=== PATIENT | male | born 1945 | race Caucasian/White ===

== ENCOUNTER 2016-07-10 12:18 | Inpatient (IN) | payer MEDICARE ==
[2016-07-09 08:30] VITALS: BMI 34.1
--- NOTE | 2016-07-10 09:38 | P.GSHP ---
History of Present Illness H&P Date: 07/10/16 CHIEF COMPLAINT: Ventral hernia HISTORY OF PRESENT ILLNESS: Lenny Novak is a 70-year-old gentleman who reports new onset swelling of the left lower abdomen and now along the left groin. He did have a previous right inguinal hernia repair done over two years ago. He has no symptoms of reflux disease anymore. His blood sugar is under excellent control. He has maintained over a 20+ pound weight loss. Now he presents for further evaluation and management. PAST MEDICAL HISTORY: Please see list. PAST SURGICAL HISTORY: Please see list. MEDICATIONS: Please see list. ALLERGIES: Please see list. SOCIAL HISTORY: No illicit drug use FAMILY HISTORY: No reports of Crohn disease or ulcerative colitis. REVIEW OF ORGAN SYSTEMS: CONSTITUTIONAL: No reports of fevers or chills. No reports of weight loss despite prior attempts. GI: Denies any blood in stools or constipation. PHYSICAL EXAM: VITAL SIGNS: Stable Vital signs: Afebrile. P: 65, R: 16, BP: 132/86, Ht: 55, Wt: 200 lbs. Abdomen: No large defect noted along the left lower anterior abdominal wall. However, there is mild swelling along the left groin noted. GENERAL: Well-developed pleasant male in no acute distress. HEENT: No scleral icterus. Extraocular movements grossly intact. Moist buccal mucosa. NECK: Supple without lymphadenopathy. CHEST: Unlabored respirations. Equal bilateral excursions. CARDIOVASCULAR: Regular rate and rhythm. Distal 2+ pulses. MUSCULOSKELETAL: No clubbing, cyanosis, or edema. ASSESSMENT: 1. History of new onset left lower quadrant abdominal pain. 2. Left groin pain. 3. History of previous bilateral inguinal hernias. 4. Diabetes type 2. PLAN: 1. I have recommended a CT of the abdomen and pelvis without oral or IV contrast. This will also help with kidney stone protocol as he also has a history of genitourinary problems. 2. Alternatives including diagnostic laparoscopy with lysis of adhesions were also described. 3. Overall, he reports swelling along the left groin for at least three weeks. Again, there is very high suspicious for a recurrent hernia for which mesh repair may be needed. 4. DVT prophylaxis. 5. Antibiotics prophylaxis. 6. Recommend proceeding with a diagnostic laparoscopy with left ventral/ inguinal hernia repair with mesh. 7. Benefits and risks of surgical intervention was discussed including possibility of open technique. Past Medical History Past Medical History: Cancer, Diabetes Mellitus, GERD/Reflux, Hypertension, Prostate Disorder, Sleep Apnea/CPAP/BIPAP, Thyroid Disorder Additional Past Medical History / Comment(s): HX Right KIDNEY CA. Enlarged Prostate. SLEEP APNEA RESOLVED. Hiatal Hernia CORRECTED. HX COLON POLYPS. History of Any Multi-Drug Resistant Organisms: None Reported Past Surgical History: Bowel Resection, Cholecystectomy, Hernia Repair, Orthopedic Surgery, Tonsillectomy Additional Past Surgical History / Comment(s): RT NEPHRECTOMY. RT KNEE ARTHROSCOPY. HIATAL, RT ING Hernia Repair. Past Anesthesia/Blood Transfusion Reactions: No Reported Reaction Past Psychological History: No Psychological Hx Reported Smoking Status: Never smoker Past Alcohol Use History: None Reported Past Drug Use History: None Reported - Past Family History Brother(s) Family Medical History: Cancer Additional Family Medical History / Comment(s): prostate Mother Family Medical History: Cancer Medications and Allergies Home Medications Medication Instructions Recorded Confirmed Type Aspirin 81 mg PO HS 09/20/13 07/09/16 History Insulin Glargine [Lantus] 15 unit SQ BID 09/20/13 07/09/16 History Levothyroxine Sodium [Synthroid] 100 mcg PO DAILY 09/20/13 07/09/16 History glipiZIDE [Glucotrol] 5 mg PO BID 09/20/13 07/09/16 History Carvedilol [Coreg] 12.5 mg PO BID 05/10/15 07/09/16 History Doxazosin Mesylate [Cardura] 8 mg PO DAILY@1800 05/10/15 07/09/16 History Allergies Allergy/AdvReac Type Severity Reaction Status Date / Time Penicillins Allergy Rash/Hives Verified 07/09/16 08:03
[~2016-07-10 12:18] MED LIST: ACETAMINOPHEN IV (For NPO) 1,000 MG in EMPTY BAG 1 BAG IVPB ONE; DEXAMETHASONE SOD PHOSPHATE 10 MG/ML 1 ML VIAL IV ONE; HEPARIN SODIUM,PORCINE 5,000 UNIT/ML 1 ML VIAL SQ ONE; HYDROmorphone 1 MG/ML 1 ML SYRINGE IVP PRN; LIDOCAINE 1% 20 ML VIAL (10MG/ML) FOR IV START INTRADERMA PRN; ONDANSETRON 4 MG/2 ML VIAL IVP ONE; ceFAZolin 2 GM in SODIUM CHLORIDE 0.9% 100 ML IVPB ONE
[2016-07-10] MEDS ORDERED: LACTATED RINGERS 1,000 ML IV ONE ×3 (13:41→17:15)
[2016-07-10 13:50] LABS: Glucose,Whole Blood 112 mg/dL (75-99)
[2016-07-10] MEDS ORDERED: MIDAZOLAM 2 MG/2 ML VIAL ONE (14:52)
[2016-07-10] MEDS ORDERED: ROCURONIUM BROMIDE 10 MG/ML 10 ML VIAL IV ONE (14:52)
[2016-07-10] MEDS ORDERED: ePHEDrine 50 MG/ML 1 ML AMP ONE (14:52)
[2016-07-10] MEDS ORDERED: PROPOFOL 10 MG/ML 20 ML VIAL IV ONE (14:52)
[2016-07-10] MEDS ORDERED: GLYCOPYRROLATE 0.2 MG/ML 2 ML VIAL ONE (14:52)
[2016-07-10] MEDS ORDERED: SUCCINYLCHOLINE CHLORIDE 100 MG/5 ML SYR IV ONE (14:52)
[2016-07-10] MEDS ORDERED: NEOSTIGMINE 1 MG/ML 10 ML VIAL ONE (14:52)
[2016-07-10] MEDS ORDERED: fentaNYL (PF) 50 MCG/ML 2 ML AMP ONE (14:52)
[2016-07-10] MEDS ORDERED: LIDOCAINE 1% INJ 10MG/ML (20 ML MDV) ONE (14:52)
[2016-07-10] MEDS ORDERED: BUPIVACAIN-EPI 0.25%-1:200,000 30 ML VIAL SQ ONE (15:28)
--- NOTE | 2016-07-10 18:39 | P.PCN ---
Date of Procedure: 07/10/16 Preoperative Diagnosis: Left lower abdominal pain, left groin pain, history of multiple abdominal surgeries, peritoneal adhesions, history of right nephrectomy, diabetes type 2, morbid obesity, BMI 34.1; history of previous colon cancer, history of right renal cancer, history of obstructive uropathy with prostatic hyperplasia Postoperative Diagnosis: Same, urethral stricture, severe intra-abdominal peritoneal adhesions involving midline, right upper quadrant and left lower quadrant, left inguinal tumor Procedure(s) Performed: Laparoscopic lysis of adhesions over 2 hours involving greater omentum to anterior abdominal wall wall midline, right upper quadrant, sigmoid adhesions in the left lower quadrant; laparoscopic left groin exploration with resection of inguinal tumor/lipoma, laparoscopic left inguinal hernia with 11.4 cm mesh Anesthesia: JANICE, local Surgeon: Suze Herbert Estimated Blood Loss (ml): 60 Pathology: other (tumor left groin) Condition: stable Disposition: observation Operative Findings: Severe intra-abdominal peritoneal adhesions involving the midline, right upper quadrant, left lower quadrant; no recurrent right inguinal hernia with mesh identified; severe adhesions along the left lower quadrant involving the sigmoid mesentery to the left lower abdominal wall; left inguinal lipoma/tumor resected; urethral stricture requiring 14-Tamazight Leary catheter placed
[2016-07-10] MEDS ORDERED: NALOXONE 0.4 MG/ML 1 ML VIAL IV PRN (18:40)
[2016-07-10] MEDS ORDERED: METOCLOPRAMIDE 5 MG/ML 2 ML VIAL IVP PRN (18:40)
[2016-07-10] MEDS ORDERED: HYDROcodone/APAP 5-325MG 1 EACH TAB PO PRN (18:40)
[2016-07-10] MEDS ORDERED: LABETALOL SYRINGE 5 MG/ML IVP ONE ×2 (18:50→19:00)
[2016-07-10 19:14] LABS: Glucose,Whole Blood 191 mg/dL (75-99)
[2016-07-10] MEDS ORDERED: INSULIN LISPRO (humaLOG) 300 UNIT/3 ML VIAL SQ ONE (19:19)
--- NOTE | 2016-07-10 20:22 | OP ---
DATE OF SERVICE: 07/10/2016 SURGEON: ARANZA TRUJILLO MD PREOPERATIVE DIAGNOSES: 1. Left lower abdominal pain. 2. Left groin pain. 3. History of multiple abdominal surgeries. 4. History of peritoneal adhesions. 5. History of right nephrectomy secondary to renal cancer. 6. History of colon cancer. 7. Obstructive uropathy secondary to hyperplastic prostate. 8. Hypertensive heart disease. 9. Insulin-dependent diabetes, type 2. 10. Hypothyroidism. 11. Obesity. 12. Body mass index 34.1. POSTOPERATIVE DIAGNOSES: 1. Left lower abdominal pain. 2. Left groin pain. 3. History of multiple abdominal surgeries. 4. History of peritoneal adhesions. 5. History of right nephrectomy secondary to renal cancer. 6. History of colon cancer. 7. Obstructive uropathy secondary to hyperplastic prostate. 8. Hypertensive heart disease. 9. Insulin-dependent diabetes, type 2. 10. Hypothyroidism. 11. Obesity. 12. Body mass index 34.1. 13. Urethral stricture. 14. Severe intraabdominal adhesions involving the midline, right upper quadrant, including left lower quadrant, sigmoid colon to the left pelvis. 15. Left groin tumor consistent with lipoma. OPERATION: 1. Laparoscopic extensive lysis of adhesions over 2 hours. 2. Laparoscopic left groin exploration with excision of inguinal lipoma/tumor. 3. Laparoscopic left inguinal hernia repair with mesh; 11.[address] ANESTHESIA: General with 60 mL 0.25% Marcaine with epinephrine. ESTIMATED BLOOD LOSS: 5 mL SPECIMENS REMOVED: Left inguinal tumor/lipoma. COMPLICATIONS: None. INDICATIONS: Lenny Novak is a 70-year-old gentleman with a history of multiple prior malignancies. Separately he has a previous history of bilateral inguinal hernia repair; however, he presents with a several-month history of increasing pain along the left lower abdomen, including increasing left groin pain. He had completed diagnostic studies. With his history of multiple intraabdominal adhesions, surgical intervention with lysis of adhesions including repair of left inguinal hernia was also reviewed. Informed consent was obtained. Benefits and risks, including bleeding, infection, injury to the small bowel, placement of mesh, were reviewed. Informed consent was obtained. DESCRIPTION OF PROCEDURE: Patient was brought to the operating room, laid in supine position. He had taken his Coreg early in the morning. He was placed on the operating room table in supine position. After general induction, the abdomen was prepped and draped in standard sterile fashion. Ioban draping was also placed. Initial placement of a 18 [place]an Leary catheter was limited due to a urethral stricture; hence a 14 [place]an catheter was placed per Nursing. Clear yellow urine was obtained. Prior to incision, a timeout protocol was confirmed with surgical team regarding patient's name, including procedure to be performed as well as chemical and DVT prophylaxis. Initial incision was placed along the left upper quadrant after anesthetizing the skin. A zero-degree 5 mm laparoscopic trocar entry was performed. The abdomen was insufflated to 15 mmHg pressure, which he tolerated well. Diagnostic laparoscopy demonstrated severe midline adhesions of the greater omentum to the anterior abdominal wall, including of the transverse mesocolon. The left lower quadrant and the sigmoid colon was adherent to the left hemipelvis. Next, two 5 mm trocars were placed along the left lateral abdominal wall under direct visualization. Extensive lysis of adhesions using a combination of blunt and sharp dissection with a cordless Harmonic scalpel and endoscopic scissors was performed without any enterotomies. Extensive and careful lysis of adhesions occurred well over 2 hours with complete mobilization of the adhesions of the omentum to the anterior abdominal wall along the midline as well as the small bowel and transverse colon that was adherent along the epigastrium and right upper quadrant. Once the abdominal wall was cleared, additional two 5 mm trocars were placed along the right lateral abdominal wall again under direct visualization. Attention was directed to the left lower quadrant, where the sigmoid colon was found adherent to the left lower quadrant consistent with the area of his concerns of pain. Please note that the area of pain had been marked with an indelible marker by the patient. He was placed in reverse Trendelenburg position with the left side up. A separate 5 mm trocar was placed just above the umbilicus. Adhesiolysis was again performed for at least half an hour. The mesocolon of the sigmoid colon was mobilized. Careful evaluation of the left groin was performed, whereby the left groin was explored with his history of chronic groin pain. Along the inguinal canal a lipoma of the left groin was resected. No injury to the vas deferens occurred. Hemostasis was checked. The rest of the groin was explored for femoral hernias, including obturator as well as direct hernias. The groin defect was oversewn using a pursestring suture of 2-0 Surgidac and a Lapra-Ty, including on an Endo stitch. As he has a history of previous hernias, including risk of recurrence, a Ventralight ST mesh 11.4 cm was divided and entered into the abdominal cavity. Sorbafix tackers were placed along the periphery of the mesh with the exception of the inferior portion to avoid any injury to the neurovascular bundles. Final endoscopic imaging was obtained regarding complete adhesiolysis, including placement of the mesh. At the end of the procedure, needle, sponge and instrument count was verified correct by the event crew technician. The incisions were reapproximated using 4-0 Monocryl in interrupted subcuticular fashion. For the right lower quadrant port, please note a 10 mm port was exchanged, which allowed for intracorporeal suturing. A total of 60 mL 0.25% Marcaine with epinephrine was infiltrated to all wounds for postoperative analgesia. The skin was cleansed. Dermabond was applied. Urine output was marginal; however, with his history of urethral stricture as well as previous obstructive neuropathy, a Leary catheter was left. Patient will be admitted at least for overnight observation with consultation to his urologist. Intraoperative findings, including images, were reviewed with the patient's family, who were pleased with the level of care. FINDINGS: 1. Severe intraabdominal adhesions along the midline, right upper quadrant and left lower quadrant. 2. Left inguinal lipoma with groin exploration, resected. 3. Repair of left inguinal hernia performed. [facility]
[2016-07-10] MEDS: LACTATED RINGERS 1,000 ML IV SCH (20:57)
[2016-07-10] MEDS ORDERED: ASPIRIN 81 MG CHEW PO SCH (21:00)
[2016-07-10] MEDS: SODIUM CHLORIDE 0.9% 1,000 ML IV SCH (21:21)
[2016-07-10] MEDS: glipiZIDE 5 MG TAB PO SCH (21:22)
[2016-07-10] MEDS: CARVEDILOL 12.5 MG TAB PO SCH (21:22)
[2016-07-10] MEDS: INSULIN GLARGINE 100 UNIT/ML 10 ML VIAL SQ SCH (21:23)
[2016-07-10] MEDS: INSULIN LISPRO (humaLOG) 300 UNIT/3 ML VIAL SQ SCH (21:25)
[2016-07-10 21:37] LABS: Glucose,Whole Blood 223 mg/dL (75-99)
[2016-07-11] MEDS: HEPARIN SODIUM,PORCINE 5,000 UNIT/ML 1 ML VIAL SQ SCH ×2 (01:32→09:22)
[2016-07-11 04:08] LABS: Glucose,Whole Blood 215 mg/dL (75-99)
[2016-07-11] MEDS: LACTATED RINGERS 1,000 ML IV SCH (05:55)
[2016-07-11] MEDS ORDERED: LEVOTHYROXINE 100 MCG TAB PO SCH (06:00)
[2016-07-11] MEDS ORDERED: TAMSULOSIN 0.4 MG CAP.ER.24H PO STA (07:14)
[2016-07-11 07:53] LABS: Calcium 8.4 mg/dL (8.4-10.2); Potassium 4.8 mmol/L (3.5-5.1)
[2016-07-11 08:17] VITALS: BP 144/81; PULSE 74; RESP 17; TEMP 98.2
[2016-07-11] MEDS ORDERED: PANTOPRAZOLE 40 MG/10 ML VIAL IV SCH (09:00)
[2016-07-11 09:15] LABS: Glucose,Whole Blood 286 mg/dL (75-99)
[2016-07-11] MEDS: glipiZIDE 5 MG TAB PO SCH (09:21)
[2016-07-11] MEDS: CARVEDILOL 12.5 MG TAB PO SCH (09:22)
[2016-07-11] MEDS: INSULIN GLARGINE 100 UNIT/ML 10 ML VIAL SQ SCH (09:26)
[2016-07-11] MEDS: INSULIN LISPRO (humaLOG) 300 UNIT/3 ML VIAL SQ SCH (09:27)
[2016-07-11] MEDS: SODIUM CHLORIDE 0.9% 1,000 ML IV SCH (09:31)
[2016-07-11] MEDS ORDERED: PANTOPRAZOLE 40 MG TABLET PO SCH (10:00)
--- NOTE | 2016-07-11 11:52 | P.GSCN ---
History of Present Illness Consult date: 07/11/16 History of present illness: The patient is a 70-year-old gentleman who was admitted the hospital for a left inguinal hernia repair by Dr. Herbert. An intraoperative catheter was elected to be placed and the nursing staff had a problem. He required a 14- Sinhala catheter to be placed and for this reason I was consult. The patient is known to me as I did a nephrectomy on him for kidney cancer many years ago on the left side. He has been discharged from my office as he has done well. Urologically he is voiding relatively well. He has occasional urgency. Is been no infection or bleeding. His stream is adequate. He has no incontinence. Review of Systems - Gastrointestinal Reports as per HPI - Genitourinary Reports as per HPI Past Medical History Past Medical History: Cancer, Diabetes Mellitus, GERD/Reflux, Hypertension, Prostate Disorder, Sleep Apnea/CPAP/BIPAP, Thyroid Disorder Additional Past Medical History / Comment(s): HX Right KIDNEY CA. Enlarged Prostate. SLEEP APNEA RESOLVED. Hiatal Hernia CORRECTED. HX COLON POLYPS. History of Any Multi-Drug Resistant Organisms: None Reported Past Surgical History: Bowel Resection, Cholecystectomy, Hernia Repair, Orthopedic Surgery, Tonsillectomy Additional Past Surgical History / Comment(s): RT NEPHRECTOMY. RT KNEE ARTHROSCOPY. HIATAL, RT ING Hernia Repair. Past Anesthesia/Blood Transfusion Reactions: No Reported Reaction Past Psychological History: No Psychological Hx Reported Smoking Status: Never smoker Past Alcohol Use History: None Reported Past Drug Use History: None Reported - Past Family History Brother(s) Family Medical History: Cancer Additional Family Medical History / Comment(s): prostate Mother Family Medical History: Cancer Medications and Allergies Home Medications Medication Instructions Recorded Confirmed Type Aspirin 81 mg PO HS 09/20/13 07/10/16 History Insulin Glargine [Lantus] 15 unit SQ BID 09/20/13 07/10/16 History Levothyroxine Sodium [Synthroid] 100 mcg PO DAILY 09/20/13 07/10/16 History glipiZIDE [Glucotrol] 5 mg PO BID 09/20/13 07/10/16 History Carvedilol [Coreg] 12.5 mg PO BID 05/10/15 07/10/16 History Doxazosin Mesylate [Cardura] 8 mg PO DAILY@1800 05/10/15 07/10/16 History Allergies Allergy/AdvReac Type Severity Reaction Status Date / Time Penicillins Allergy Rash/Hives Verified 07/09/16 08:03 Surgical - Exam Vital Signs Resp 20 07/10/16 04:00 - General well developed, well nourished, no distress - Eyes PERRL - ENT no hearing loss - Neck trachea midline - Respiratory normal expansion, normal respiratory effort - Cardiovascular Rhythm: regular - Abdomen Abdomen: soft, non tender - Genitourinary normal penis with no external lesions, testicles present - Integumentary no rash, no growths - Neurologic normal coordination, normal sensation, disoriented - Musculoskeletal normal posture - Psychiatric oriented to time, oriented to person, oriented to place Results - Labs 07/11/16 06:20 Abnormal Lab Results - Last 24 Hours (Table) 07/10/16 07/10/16 07/10/16 Range/Units 13:47 19:11 21:14 Chloride (98-107) mmol/L BUN (9-20) mg/dL Creatinine (0.66-1.25) mg/dL Glucose (74-99) mg/dL POC Glucose (mg/dL) 112 H 191 H 223 H (75-99) mg/dL 07/11/16 07/11/16 07/11/16 Range/Units 04:04 06:20 09:13 Chloride 108 H (98-107) mmol/L BUN 23 H (9-20) mg/dL Creatinine 1.45 H (0.66-1.25) mg/dL Glucose 214 H (74-99) mg/dL POC Glucose (mg/dL) 215 H 286 H (75-99) mg/dL Diabetes panel 07/11/16 Range/Units 06:20 Sodium 139 (137-145) mmol/L Potassium 4.8 (3.5-5.1) mmol/L Chloride 108 H (98-107) mmol/L Carbon Dioxide 23 (22-30) mmol/L BUN 23 H (9-20) mg/dL Creatinine 1.45 H (0.66-1.25) mg/dL Glucose 214 H (74-99) mg/dL Calcium 8.4 (8.4-10.2) mg/dL Calcium panel 07/11/16 Range/Units 06:20 Calcium 8.4 (8.4-10.2) mg/dL Pituitary panel 07/11/16 Range/Units 06:20 Sodium 139 (137-145) mmol/L Potassium 4.8 (3.5-5.1) mmol/L Chloride 108 H (98-107) mmol/L Carbon Dioxide 23 (22-30) mmol/L BUN 23 H (9-20) mg/dL Creatinine 1.45 H (0.66-1.25) mg/dL Glucose 214 H (74-99) mg/dL Calcium 8.4 (8.4-10.2) mg/dL Adrenal panel 07/11/16 Range/Units 06:20 Sodium 139 (137-145) mmol/L Potassium 4.8 (3.5-5.1) mmol/L Chloride 108 H (98-107) mmol/L Carbon Dioxide 23 (22-30) mmol/L BUN 23 H (9-20) mg/dL Creatinine 1.45 H (0.66-1.25) mg/dL Glucose 214 H (74-99) mg/dL Calcium 8.4 (8.4-10.2) mg/dL Assessment and Plan Plan: Impression: Difficult urethral catheterization indeterminate cause, possible BPH , possible urethral stricture. Status post inguinal hernia repair. Status post nephrectomy. Recommendations: Patient's catheters been removed. He does not describe any difficulty voiding. If he voids without difficulty nothing further urologic needs to be done other than a follow-up in my office in about 2-3 weeks. If he has difficulty urinating we'll address that as a arises. Been instructed to see me in 2-3 weeks.
[2016-07-11 13:39] LABS: Hemoglobin A1C 7.2 % (4.2-6.1)
--- NOTE | 2016-07-11 13:41 | P.DS ---
Providers Date of admission: 07/10/16 18:28 Expected date of discharge: 07/11/16 Attending physician: Suze Herbert Consults: 07/10/16 18:40 Consult Physician Routine Consulting Provider: Charlie Ch Consult Reason/Comments: Urethral stricture, known to you Do you want consulting provider notified?: Yes 07/10/16 19:44 Consult Physician Routine Consulting Provider: Wander Flood Consult Reason/Comments: Medical management Do you want consulting provider notified?: Yes Primary care physician: Wander Flood - Discharge Diagnosis(es) (1) Urethral stricture Current Visit: Yes Status: Acute (2) Obstructive uropathy Current Visit: Yes Status: Acute (3) Diabetes type 2, controlled Current Visit: Yes Status: Acute (4) Hypertensive heart disease Current Visit: Yes Status: Acute (5) Obesity (BMI 30.0-34.9) Current Visit: Yes Status: Acute (6) History of renal carcinoma Current Visit: Yes Status: Acute (7) History of colon cancer Current Visit: Yes Status: Acute (8) History of Waterman's esophagus Current Visit: Yes Status: Acute (9) Peritoneal adhesions Current Visit: Yes Status: Acute (10) Left lower quadrant pain Current Visit: Yes Status: Acute (11) Left groin pain Current Visit: Yes Status: Acute (12) Hypothyroidism Current Visit: Yes Status: Acute (13) Recurrent inguinal hernia of left side without obstruction or gangrene Current Visit: Yes Status: Acute Hospital Course: The patient is a 70-year-old gentleman with multiple medical comorbidities as well as multiple previous abdominal surgeries who presented with persistent left lower quadrant abdominal pain including the left groin pain. He has a personal history of previous bilateral inguinal hernia repairs with recurrent symptoms. He completed diagnostic studies at an outside institution demonstrating large prostate. He underwent a diagnostic laparoscopy with extensive lysis of adhesions over 2 hours. Additionally intraoperative findings including urethral stricture was identified. Postoperatively, with his new diagnosis of uretheral stricture as well as obstructive uropathy and multiple medical comorbidities with a single kidney, the patient was admitted. Consultation with urology was obtained. Prior to discharge he was tolerating diet. His pain was controlled. Management of urethral stricture including follow-up as outpatient with urology was advised. Procedures: Laparoscopic lysis of adhesions over 2 hours. Laparoscopic left groin exploration with excision of left groin lipoma. Laparoscopic repair of recurrent left inguinal hernia with mesh. Patient Condition at Discharge: Stable Plan - Discharge Summary New Discharge Prescriptions: Hydrocodone/Acetaminophen [[place] 5-325] 1 - 2 each PO Q6HR PRN #20 tab PRN Reason: Pain Discharge Medication List Aspirin 81 mg PO HS 09/20/13 [History] Insulin Glargine [Lantus] 15 unit SQ BID 09/20/13 [History] Levothyroxine Sodium [Synthroid] 100 mcg PO DAILY 09/20/13 [History] glipiZIDE [Glucotrol] 5 mg PO BID 09/20/13 [History] Carvedilol [Coreg] 12.5 mg PO BID 05/10/15 [History] Doxazosin Mesylate [Cardura] 8 mg PO DAILY@1800 05/10/15 [History] Hydrocodone/Acetaminophen [[place] 5-325] 1 - 2 each PO Q6HR PRN #20 tab 07/10/16 [Rx] Follow up Appointment(s)/Referral(s): Suze Herbert MD [STAFF PHYSICIAN] - 07/14/16 (Call to confirm time) Charlie Ch MD [STAFF PHYSICIAN] - 2 Weeks (follow up with Dr Ch in 2 to 3 weeks) Patient Instructions/Handouts: Laparoscopic Herniorrhaphy (DC), Lysis of Abdominal Adhesions (DC) Activity/Diet/Wound Care/Special Instructions: No lifting or 4 pounds in 4 weeks. Discharge Disposition: HOME SELF-CARE
[2016-07-11] MEDS ORDERED: TAMSULOSIN 0.4 MG CAP.ER.24H PO ONE (18:00)
[2016-07-12] MEDS ORDERED: TAMSULOSIN 0.4 MG CAP.ER.24H PO SCH (18:00)
== END 2016-07-11 14:48 | disposition home or self-care (01) | DRG 336 ==
LOC: OR 12:18 → 3SUR 18:28
PROVIDERS: ADMIT Surgery Plastic and Reconstructive Surgery; ATTEND Surgery Plastic and Reconstructive Surgery
PROC: 0YU64JZ Supplement Left Inguinal Region with Synthetic Substitute, Percutaneous Endoscopic Approach (ICD-10-PCS; 2016-07-10)
PROC: 0WBF4ZX Excision of Abdominal Wall, Percutaneous Endoscopic Approach, Diagnostic (ICD-10-PCS; 2016-07-10)
PROC: 0DNS4ZZ (ICD-10-PCS; principal; 2016-07-10 14:45)
DX: D17.5 Benign lipomatous neoplasm of intra-abdominal organs (principal); N13.8 Other obstructive and reflux uropathy; E11.9 Type 2 diabetes mellitus without complications; K40.91 Unilateral inguinal hernia, without obstruction or gangrene, recurrent; G47.30 Sleep apnea, unspecified; K21.9 Gastro-esophageal reflux disease without esophagitis; N40.1 Benign prostatic hyperplasia with lower urinary tract symptoms; N35.9 Urethral stricture, unspecified; K66.0 Peritoneal adhesions (postprocedural) (postinfection); I11.9 Hypertensive heart disease without heart failure; E03.9 Hypothyroidism, unspecified; E66.9 Obesity, unspecified; Z68.34 Body mass index [BMI] 34.0-34.9, adult; Z85.038 Personal history of other malignant neoplasm of large intestine; Z85.528 Personal history of other malignant neoplasm of kidney; Z86.010 Personal history of colon polyps; Z90.5 Acquired absence of kidney; Z90.49 Acquired absence of other specified parts of digestive tract; Z79.82 Long term (current) use of aspirin; Z79.4 Long term (current) use of insulin; Z79.84 Long term (current) use of oral hypoglycemic drugs; Z79.899 Other long term (current) drug therapy
CPT/HCPCS: 80048; 83036; 88305

== ENCOUNTER → 2017-04-20 | Outpatient (CLI) | payer MEDICARE ==
--- NOTE | 2017-04-20 12:17 | XR ---
Right knee HISTORY: Right knee pain 3 views of the right knee There is chondrocalcinosis. There is joint space loss is present tricompartmentally. Marginal spurrin g is also present tricompartmentally. There may be small loose bodies. Possible joint effusion. Bone mineralization and alignment maintained. 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
== END | disposition home or self-care (01) ==
LOC: RADXRMAIN 10:04
PROVIDERS: ATTEND Internal Medicine Geriatric Medicine
DX: M25.561 Pain in right knee (principal)

== ENCOUNTER → 2018-04-28 | Outpatient (CLI) | payer MEDICARE ==
[2018-04-28 14:17] LABS: HCT 44.8 % (39.0-53.0); HGB 14.6 gm/dL (13.0-17.5); MCH 30.7 pg (25.0-35.0); MCHC 32.7 g/dL (31.0-37.0); MCV 93.9 fL (80.0-100.0); Mean Platelet Volume 6.7; Platelet Count 116 k/uL (150-450); RBC 4.77 m/uL (4.30-5.90); RDW 13.7 % (11.5-15.5); WBC 4.8 k/uL (3.8-10.6)
[2018-04-28 14:20] LABS: Prothrombin Time 10.6 sec (9.0-12.0)
[2018-04-28 14:31] LABS: Albumin 3.8 g/dL (3.5-5.0); Appearance,Urine Clear (Clear); Bilirubin,Urine Negative (Negative); Blood,Urine Negative (Negative); Calcium 8.7 mg/dL (8.4-10.2); Color,Urine Yellow; Glucose,Urine (UA) 4+ (Negative); Ketones,Urine Negative (Negative); Leukocyte Esterase,Urine Negative (Negative); Nitrite,Urine Negative (Negative); PH, Urine 5.5 (5.0-8.0); Potassium 4.6 mmol/L (3.5-5.1); Protein,Urine Negative (Negative); Specific Gravity,Urine 1.017 (1.001-1.035); Total Bilirubin 0.9 mg/dL (0.2-1.3); Total Protein 5.9 g/dL (6.3-8.2); Urobilinogen,Urine <2.0 mg/dL (<2.0)
== END | disposition home or self-care (01) ==
LOC: LABPAT 13:14
PROVIDERS: ATTEND Orthopaedic Surgery
DX: Z01.818 Encounter for other preprocedural examination (principal); Z01.812 Encounter for preprocedural laboratory examination; Z79.01 Long term (current) use of anticoagulants
CPT/HCPCS: 36415; 80053; 81003; 85027; 85610; 85730; 87070; 93005

== ENCOUNTER 2018-05-17 09:55 | Inpatient (IN) | payer MEDICARE ==
[~2018-05-17 09:55] MED LIST changes: -ACETAMINOPHEN IV (For NPO) 1,000 MG in EMPTY BAG 1 BAG IVPB ONE; +ACETAMINOPHEN TAB 500 MG TAB PO ONE; -HEPARIN SODIUM,PORCINE 5,000 UNIT/ML 1 ML VIAL SQ ONE; +HYDROmorphone 0.5 MG/0.5 ML SYRINGE IVP PRN; -HYDROmorphone 1 MG/ML 1 ML SYRINGE IVP PRN; -LIDOCAINE 1% 20 ML VIAL (10MG/ML) FOR IV START INTRADERMA PRN; +MELOXICAM 7.5 MG TAB PO ONE; +MIDAZOLAM (PF) 2 MG/2 ML VIAL IV PRN; +ROPIVACAINE 246.25 MG, EPINEPHrine 0.5 MG, KETOROLAC 30 MG, cloNIDine HCL/PF 80 MCG, WA... MISCELLANE ONE; +TRANEXAMIC ACID 1,000 MG in SODIUM CHLORIDE 0.9% 100 ML IVPB ONE; -ceFAZolin 2 GM in SODIUM CHLORIDE 0.9% 100 ML IVPB ONE; +ceFAZolin IN SWFI 2 GM/20 ML SYRINGE IVP ONE
[2018-05-17 10:38] VITALS: RESP 16
[2018-05-17] MEDS ORDERED: LIDOCAINE 1% 20 ML VIAL (10MG/ML) FOR IV START INTRADERMA ONE (11:00)
[2018-05-17] MEDS ORDERED: LACTATED RINGERS 1,000 ML IV ONE ×2 (11:06→13:10)
[2018-05-17 11:14] LABS: Glucose,Whole Blood 92 mg/dL (75-99)
[2018-05-17] MEDS ORDERED: fentaNYL (PF) 50 MCG/ML 2 ML AMP IVP ONE (11:20)
[2018-05-17] MEDS ORDERED: ONDANSETRON 4 MG/2 ML VIAL IVP PRN (11:47)
[2018-05-17] MEDS ORDERED: DIAZEPAM 5 MG TAB PO PRN (11:47)
[2018-05-17] MEDS ORDERED: hydrOXYzine PAMOATE 25 MG CAP PO PRN (11:47)
[2018-05-17] MEDS ORDERED: HYDROmorphone 0.5 MG/0.5 ML SYRINGE IVP PRN ×3 (11:47)
[2018-05-17] MEDS ORDERED: HYDROcodone/APAP 5-325MG 1 EACH TAB PO PRN ×2 (11:47)
[2018-05-17] MEDS ORDERED: BISACODYL 10 MG SUPP RECTAL PRN (11:47)
[2018-05-17] MEDS ORDERED: NALOXONE 0.4 MG/ML 1 ML VIAL IV PRN (11:47)
[2018-05-17] MEDS ORDERED: NA PHOS,M-B/NA PHOS,DI-BA 133 ML ENEMA RECTAL PRN (11:47)
[2018-05-17] MEDS ORDERED: MAGNESIUM HYDROXIDE 2,400 MG/10 ML CUP PO PRN (11:47)
[2018-05-17] MEDS ORDERED: MIDAZOLAM 2 MG/2 ML VIAL ONE (12:03)
[2018-05-17] MEDS ORDERED: fentaNYL (PF) 50 MCG/ML 2 ML AMP ONE (12:03)
[2018-05-17] MEDS ORDERED: TRANEXAMIC ACID 1,000 MG/10 ML VIAL ONE (12:03)
[2018-05-17] MEDS ORDERED: diphenhydrAMINE 50 MG/ML 1 ML VIAL ONE (12:03)
[2018-05-17] MEDS ORDERED: SODIUM CHLORIDE 0.9% 100 ML BAG ONE (12:03)
[2018-05-17] MEDS ORDERED: PHENYLEPHRINE-0.9% NACL SYG 1 MG/10 ML SYRINGE ONE (12:03)
[2018-05-17] MEDS ORDERED: ROPIVACAINE 1,100 MG, SODIUM CHLORIDE 0.9% 500 ML 330 ML MISCELLANE PRN ×2 (12:19)
--- NOTE | 2018-05-17 12:21 | P.ONQ ---
Anesthesiology Proc Note - PNB - Peripheral Nerve Block Performed Right Adductor Canal Infusion Time Out Performed: Yes Indication: Acute Post-Operative Pain Specifically requested for management of pain by DrAzalia: Olu Ackerman Sedation Type: Sedate with meaningful contact maintained Preparation: Sterile Prep Position: Supine Catheter Depth at Skin (cm): 7 Catheter: Indwelling Needle Types: Other (see comment) (Pajunk) Needle Size: 100mm (4") Needle Gauge: 18 Technique: Ultrasound Injectate: 0.5% Ropivacaine (see comment for volume) (20cc) Blood Aspirated: No Pain Paresthesia on Injection Noted: No Resistance on Injection: Normal Events: Uneventful and Well Tolerated
[2018-05-17] MEDS ORDERED: CLINDAMYCIN 1,800 MG in SODIUM CHLORIDE 0.9% IRRIGATIO 3,000 ML IRRIGATION ONE (12:38)
--- NOTE | 2018-05-17 13:32 | P.OP ---
Date of Procedure: 05/17/18 Preoperative Diagnosis: Severe osteoarthritis right knee Postoperative Diagnosis: Severe osteoarthritis right knee Procedure(s) Performed: Right total knee arthroplasty Implants: Ch[employer]hew Journey II CR Oxinium cruciate retaining femoral component size 5, right [employer] Journey right nonporous tibial baseplate size 5 [employer] Journey II, XLPE CR articular insert, size 9 mm, Size 5-6 right [employer] Journey BCS resurfacing oval patellar component, 29 mm All components were cemented using Palacos R bone cement.. The articulation is Oxinium on polyethylene. Anesthesia: spinal Surgeon: Olu Ackerman Product Manager Medical Device #1: Tameka Nguyen Estimated Blood Loss (ml): 25 Pathology: other (Bone and cartilage) Condition: stable Disposition: PACU Indications for Procedure: After failure of conservative treatment we discussed the surgical and nonsurgical treatment options at length. Patient wishes to proceed with a total knee arthroplasty. Complications specific to this procedure were discussed at length, including but not limited to infection, bleeding, stiffness, and nerve injury. Patient is aware of all these complications and informed consent was obtained Operative Findings: The operative findings are consistent with severe osteoarthritis of the right knee Description of Procedure: Patient was seen in the preoperative area consent was reviewed and operative site was marked with a skin marker. An adductor canal pain catheter was placed by anesthesia in the preoperative area. Patient was then brought to the operating room and given preoperative antibiotics intravenously. A spinal anesthetic was administered by the anesthesia department. A tourniquet was placed on the upper thigh and the lower extremity was prepped and draped in usual sterile fashion. A gram of transexamic acid was given. A universal timeout was then performed which confirmed the patient's name, surgical site, ALLERGIES, and consent. The lower extremity was then exsanguinated and tourniquet was inflated to 250 mmHg. A standard and anterior midline approach to the knee was performed. The skin and subcutaneous tissue was dissected down to the patellar tendon. A medial parapatellar arthrotomy was then performed. The knee was then extended, the patellar was everted, and the knee was again flexed. Anterior horns of both menisci were excised, and a release was performed to the posterior medial aspect of the knee. On gross visual inspection, there was complete loss of articular cartilage in the medial and patellofemoral joint spaces. There was also significant cartilage damage in the lateral compartment. There were multiple periarticular osteophytes which were then removed with a Ronguer. The femoral canal was then opened with the appropriate drill, and the intramedullary femoral cutting guide was then placed and set for 5 of valgus. The distal femoral cutting block was then pinned in place, and the distal femur was then cut. The cutting block was then removed and the cut was checked for flatness. Next, the sizing guide was then placed and set for 3 external rotation based off of the epicondylar axis and Whitesides line. After the femur was sized, the appropriate 4-in-1 cutting block was then pinned in place. The anterior condyles were cut without notching. The posterior and chamfer cuts were performed while protecting the collateral ligaments. The cutting block was then removed, and the femoral canal was plugged with autologous bone. Attention was then directed to the tibia. The remaining ACL was removed with a Ronguer, and the tibia was then gently subluxed forward with a large bent knee retractor. Any remaining menisci was excised. The posterior lateral corner was cauterized in order to cauterize the lateral geniculate artery. The extra medullary tibial cutting guide was then placed, set for the appropriate rotation, slope, and depth of resection. The proximal tibia cutting guide was then pinned in place. Proximal tibia was then cut and sized. Next trials were then placed with the appropriate-sized insert. The knee was able to fully extend and flex to 130 and was stable throughout all range of motion. The knee was then extended, patella everted. Patella was then measured, and then using an osteotomy guide, the patella was cut at the appropriate level. The patella was then measured and drilled and the patella trial was then placed. The knee was then taken through range of motion with the patella trial and the patella tracked normally. The knee was then extended patella trial was then removed and the patella was everted. Knee was then flexed and lug holes were drilled through the femoral trial and the femoral trial was then removed. The tibial was then exposed, and the tibial broach guide was then pinned in place after it was set for the appropriate rotation to allow for the most coverage without overhang. The tibia was then reamed and broached. The cut surfaces of bone were then irrigated with pulsatile lavage. The posterior structures were injected with the ropivacaine solution. The knee was also irrigated with Irrisept solution. The components were then opened, the cement was mixed, and the components were then cemented in place. The cement was allowed to harden with the knee in full extension. While the cement was hardening, the remaining soft tissues were then injected with a ropivacaine solution, which consisted of 246.25 mg of ropivacaine, 0.5 mg of epinephrine, 30 mg of Toradol, 80 g of clonidine, and 48.45 mL of sterile water, for a total of 100 mL of fluid injected. After the cemented hardened. The tourniquet was released, and hemostasis was obtained. A second gram of transexamic acid was given. The knee was again irrigated. The knee was again taken through range of motion and found to be stable throughout all range of motion of 0-130, and the patella tracked normally. The fascia was then closed with #2 strata fix suture. The subcutaneous tissue was closed with 3-0 Vicryl and 3-0 strata fix. Dermabond glue was used for the skin and placed with the knee in flexion. The patient was placed in a sterile silver dressing. Patient was then transferred to recovery room in stable condition. The assistant teacher primary MARIAMA Fierro was required due the complexity surgery and the need for a skilled surgical assistant certified. She assisted in positioning, draping, retraction, and closure of the wound.
--- NOTE | 2018-05-17 14:09 | XR ---
Right knee HISTORY: Postop 2 views the right knee, correlation to prior exam 04/20/2017 Patient is status post right knee arthroplasty. There is anatomic alignment. Lucency in the soft tiss ues is compatible with postop state. IMPRESSION: Orthopedic follow-up.
[2018-05-17] MEDS: LACTATED RINGERS 1,000 ML IV SCH (14:26)
[2018-05-17 14:32] LABS: Glucose,Whole Blood 70 mg/dL (75-99)
[2018-05-17 15:22] VITALS: BMI 35.2
--- NOTE | 2018-05-17 16:12 | P.CONS ---
History of Present Illness - Reason for Consult Consult date: 05/17/18 Medical management Requesting physician: Olu Ackerman - Chief Complaint Right total knee arthroplasty - History of Present Illness This is a 72-year-old gentleman patient of Dr. Flood, underlying history of hypothyroidism and diabetes mellitus type 2, CK D stage III, idiopathic peripheral neuropathy, hemorrhoids, primary thrombocytopenia, paroxysmal esophagus CAD renal cancer with right nephrectomy, scheduled right total knee arthroplasty on 05/17/2018, patient is seen postoperatively, without any new complaints, except for mild postop nausea, patient does not have any chest pain or shortness of breath, no lightheadedness, no melena no hematochezia. Patient denies any history of previous DVT in the past currently in orthopedic floor, was noted to have new onset afib in surgery preholding area, with singificant ectopy when seen in floor with stable vital signs, ekg requested, cardiology consult for new onset afib Review of Systems Constitutional: Reports as per HPI, Denies anorexia, Denies chills, Denies chronic headaches, Denies chronic pain, Denies daytime sleepiness, Denies fatigue, Denies fever, Denies lethargy, Denies malaise, Denies night sweats, Denies poor appetite, Denies sweats, Denies weakness, Denies weight gain, Denies weight loss Ears, nose, mouth and throat: Reports as per HPI, Denies ant. neck pain, Denies bleeding gums, Denies dental pain, Denies dysphagia, Denies epistaxis, Denies headache, Denies hoarseness, Denies mouth pain, Denies nasal congestion, Denies nasal discharge, Denies neck fullness/pressure, Denies neck lump, Denies nose pain, Denies odynophagia, Denies post-nasal drip, Denies sinus pain, Denies sinus pressure, Denies swelling in mouth, Denies swelling in throat, Denies sore throat, Denies vertigo, Denies voice changes Cardiovascular: Reports as per HPI Respiratory: Reports as per HPI Gastrointestinal: Reports as per HPI, Denies abdominal pain, Denies belching, Denies bloating, Denies BRBPR, Denies change in bowel habits, Denies coffee ground emesis, Denies constipation, Denies diarrhea, Denies dyspepsia, Denies early satiety, Denies excessive gas, Denies heartburn, Denies hematemesis, Denies hematochezia, Denies indigestion, Denies jaundice, Denies lactose intolerance, Denies loss of appetite, Denies melena, Denies nausea, Denies vomiting Genitourinary: Reports as per HPI Musculoskeletal: Reports as per HPI, Reports gait dysfunction, Reports limitation of motion, Denies arm numbness/tingling, Denies atrophy, Denies fractures, Denies frequent falls, Denies hot joints, Denies leg numbness/tingling, Denies loss of height, Denies low back pain, Denies morning stiffness, Denies muscle cramps, Denies muscle weakness, Denies myalgias, Denies neck pain, Denies neck stiffness, Denies prior amputations, Denies redness of joints, Denies shooting arm pain, Denies shooting leg pain Integumentary: Reports as per HPI Neurological: Reports as per HPI, Denies aphasia, Denies ataxia, Denies balance difficulties, Denies burning pain, Denies change in mentation, Denies change in smell/taste, Denies change in speech, Denies confusion, Denies convulsions, Denies double vision, Denies gait dysfunction, Denies head injury, Denies headaches, Denies hearing difficulties, Denies lack of coordination, Denies loss of vision, Denies memory loss, Denies migraines, Denies motor disturbance, Denies numbness, Denies paralysis, Denies paresthesias, Denies seizures, Denies sensory deficit, Denies spasticity, Denies syncope, Denies tic, Denies tingling, Denies transient paralysis, Denies tremors, Denies vertigo, Denies weakness, Denies visual changes Psychiatric: Reports as per HPI, Denies anhedonia, Denies anxiety, Denies anxiety attacks, Denies change in appetite, Denies change in libido, Denies change in sleep habits, Denies confusion, Denies depression, Denies difficulty concentrating, Denies disorientation, Denies hallucinations, Denies hopelessness, Denies hypersomnia, Denies insomnia, Denies irritability, Denies memory loss, Denies mood swings, Denies paranoia, Denies sadness/tearfulness, Denies sleep disturbances, Denies suicidal ideation Endocrine: Reports as per HPI Hematologic/Lymphatic: Reports as per HPI, Denies easy bleeding, Denies easy bruising, Denies lymphadenopathy, Denies lymphedema, Denies thrombophilia Allergic/Immunologic: Reports as per HPI Past Medical History Past Medical History: Cancer, Diabetes Mellitus, GERD/Reflux, Hypertension, Prostate Disorder, Sleep Apnea/CPAP/BIPAP, Thyroid Disorder Additional Past Medical History / Comment(s): HX Right KIDNEY CA. Enlarged Prostate. SLEEP APNEA RESOLVED. Hiatal Hernia CORRECTED. HX COLON POLYPS. History of Any Multi-Drug Resistant Organisms: None Reported Past Surgical History: Bowel Resection, Cholecystectomy, Hernia Repair, Orthopedic Surgery, Tonsillectomy Additional Past Surgical History / Comment(s): RT NEPHRECTOMY. RT KNEE ARTHROSCOPY. HIATAL , RT ING Hernia Repair X2 , TRI 05/17/2018 Past Anesthesia/Blood Transfusion Reactions: No Reported Reaction Past Psychological History: No Psychological Hx Reported Smoking Status: Never smoker Past Alcohol Use History: None Reported Past Drug Use History: None Reported - Past Family History Brother(s) Family Medical History: Cancer Additional Family Medical History / Comment(s): prostate Mother Family Medical History: Cancer Father Family Medical History: Diabetes Mellitus Sister(s) Family Medical History: No Reported History Daughter(s) Family Medical History: No Reported History Son(s) Family Medical History: No Reported History Medications and Allergies Home Medications Medication Instructions Recorded Confirmed Type Insulin Glargine [Lantus] 27 unit SQ [id number] 09/20/13 05/17/18 History Levothyroxine Sodium [Synthroid] 200 mcg PO DAILY 09/20/13 05/17/18 History glipiZIDE [Glucotrol] 5 mg PO BID 09/20/13 05/17/18 History Carvedilol [Coreg] 12.5 mg PO BID 05/10/15 05/17/18 History Doxazosin Mesylate [Cardura] 8 mg PO DAILY@1800 05/10/15 05/17/18 History Insulin Glargine [Lantus] 23 unit SQ DAILY@1800 05/02/18 05/17/18 History Omeprazole [PriLOSEC] 20 mg PO DAILY 05/02/18 05/17/18 History Allergies Allergy/AdvReac Type Severity Reaction Status Date / Time Penicillins Allergy Rash/Hives Verified 05/17/18 15:21 Physical Exam Vitals: Vital Signs Temp Pulse Pulse Pulse Resp BP BP 05/17/18 14:49 97 16 141/77 05/17/18 14:34 95 16 134/86 05/17/18 14:19 97.7 F 89 105 H 16 143/102 05/17/18 14:04 87 16 129/81 05/17/18 13:49 98 F 80 16 106/57 05/17/18 11:36 81 16 122/74 05/17/18 10:28 96.0 F L 103 H 16 126/94 Pulse Ox 05/17/18 14:49 96 05/17/18 14:34 98 05/17/18 14:19 95 05/17/18 14:04 94 L 05/17/18 13:49 95 05/17/18 11:36 98 05/17/18 10:28 97 Intake and Output 05/17/18 05/17/18 05/17/18 06:59 14:59 22:59 Intake Total 1351 Output Total 50 Balance 1301 Intake: IV 1351 Output: Estimated Blood Loss 50 - Constitutional General appearance: cooperative, obese - EENT Eyes: anicteric sclerae, EOMI, PERRLA, dentition normal, normal appearance ENT: NA/AT, normal oropharynx - Neck Neck: normal ROM - Respiratory Respiratory: bilateral: CTA, negative: diminished, dullness, rales, rhonchi - Cardiovascular Rhythm: regular Abnormal Heart Sounds: no systolic murmur, no diastolic murmur, no rub, no S3 Gallop, no S4 Gallop, no click, no other - Gastrointestinal General gastrointestinal: normal bowel sounds, soft - Integumentary Integumentary: normal, normal turgor - Neurologic Neurologic: CNII-XII intact - Musculoskeletal Musculoskeletal: gait normal, strength equal bilaterally Results Labs: Abnormal Lab Results - Last 24 Hours (Table) 05/17/18 Range/Units 14:30 POC Glucose (mg/dL) 70 L (75-99) mg/dL Laboratory Results POC Glucose (mg/dL) 70 mg/dL (75-99) L 05/17/18 14:30 POC Glu Ceramic Plater PAUL Lexi Santo 05/17/18 14:30 Assessment and Plan Plan: 1. Right total knee arthroplasty, postop day #0, performed secondary to advancing DJD, patient's receiving DVT prep prophylaxis, incentive spirometry, home medications are resumed, caution with regards to fluids shifts history of nephrectomy in the past, no history of CHF or PE. Patient would be receiving physical therapy, expected home therapy post discharge. Use of caution with opiates, advised for patient use 2. new onset afib with multiple ectopy on exam, rx telemetry monitorig tsh and mag levels, troponin. RCRI score of 1 prior to surgery, will monitor for periopertice major cardiac events.c ardiology consult 2. Diabetes mellitus type 2. Glipizide 10 mg one half tab twice a day, Lantus 20 units twice a day 3 Hypertension on Coreg 2.5 mg twice a day, patient is not on any HAILEY orARB or calcium channel abilio prior to admission, 4 Renal cell carcinoma right nephrectomy, monitor creatinine and hospital, avoid hypotension 5 CAD, on Coreg 12.5 mg twice a day, 6 Hypothyroidism on levothyroxine 100 g daily 7 BPH without lower tract symptomatology on doxazosin 8 mg daily 8 DVT prophylaxis, oral aspirin 325 mg twice a day\ 9gi prophylaxis Thank you Dr. Ackerman in allowing us to participate in the care off your patient. We are going to follow him with you during this current hospital stay, changes to his treatment to be made by his clinical progress, we will follow him closely
[2018-05-17 16:50] LABS: Glucose,Whole Blood 160 mg/dL (75-99)
[2018-05-17] MEDS: SODIUM CHLORIDE 0.9% 1,000 ML IV SCH (17:09)
[2018-05-17] MEDS: INSULIN ASPART (NovoLOG) 100 UNIT/ML VIAL SQ SCH ×2 (17:18→22:09)
[2018-05-17] MEDS: CARVEDILOL 12.5 MG TAB PO SCH (17:18)
[2018-05-17] MEDS ORDERED: INSULIN DETEMIR (LEVEMIR) 100 UNIT/ML SYR SQ SCH (18:00)
[2018-05-17] MEDS ORDERED: DOXAZOSIN 4 MG TAB PO SCH (18:00)
[2018-05-17] MEDS: ceFAZolin IN SWFI 2 GM/20 ML SYRINGE IVP SCH (19:03)
[2018-05-17] MEDS ORDERED: DILTIAZEM DRIP BOLUS FROM BAG 1 MG SOLN IV STA (19:51)
[2018-05-17] MEDS ORDERED: DILTIAZEM 125 MG in SODIUM CHLORIDE 0.9% 100 ML IV SCH (20:30)
[2018-05-17] MEDS ORDERED: SENNOSIDES-DOCUSATE SODIUM 1 EACH TAB PO SCH (21:00)
[2018-05-17] MEDS: MAGNESIUM SULFATE-D5W PMX 1 GM in DEXTROSE/WATER 1 100ML.BAG IVPB SCH ×2 (21:01→22:09)
[2018-05-17 22:04] LABS: Glucose,Whole Blood 347 mg/dL (75-99)
[2018-05-17] MEDS: ASPIRIN 325 MG TAB PO SCH (22:08)
[2018-05-18] MEDS: ceFAZolin IN SWFI 2 GM/20 ML SYRINGE IVP SCH (00:18)
[2018-05-18] MEDS: LACTATED RINGERS 1,000 ML IV SCH (05:05)
[2018-05-18 05:46] LABS: Glucose,Whole Blood 304 mg/dL (75-99)
[2018-05-18] MEDS ORDERED: LEVOTHYROXINE 100 MCG TAB PO SCH (06:30)
[2018-05-18 06:33] LABS: Basophils % (A) 0 %; Eosinophils % (A) 0 %; HCT 42.1 % (39.0-53.0); HGB 14.2 gm/dL (13.0-17.5); Lymphocytes # (A) 0.5 k/uL (1.0-4.8); Lymphocytes % (A) 5 %; MCH 31.1 pg (25.0-35.0); MCHC 33.7 g/dL (31.0-37.0); MCV 92.5 fL (80.0-100.0); Mean Platelet Volume 6.7; Monocytes # (A) 0.6 k/uL (0-1.0); Monocytes % (A) 6 %; Neutrophils % (A) 89 %; Platelet Count 117 k/uL (150-450); RBC 4.55 m/uL (4.30-5.90); RDW 13.7 % (11.5-15.5); WBC 10.2 k/uL (3.8-10.6)
[2018-05-18] MEDS: SODIUM CHLORIDE 0.9% 1,000 ML IV SCH (06:42)
[2018-05-18] MEDS: CARVEDILOL 12.5 MG TAB PO SCH (06:42)
[2018-05-18 06:43] LABS: Calcium 8.4 mg/dL (8.4-10.2); Potassium 4.6 mmol/L (3.5-5.1)
[2018-05-18] MEDS: INSULIN ASPART (NovoLOG) 100 UNIT/ML VIAL SQ SCH ×2 (07:09→12:52)
[2018-05-18] MEDS ORDERED: INSULIN DETEMIR (LEVEMIR) 100 UNIT/ML SYR SQ SCH (07:30)
[2018-05-18] MEDS ORDERED: glipiZIDE 5 MG TAB PO SCH (07:30)
[2018-05-18] MEDS ORDERED: PANTOPRAZOLE 40 MG TABLET PO SCH (07:30)
[2018-05-18] MEDS: ASPIRIN 325 MG TAB PO SCH (08:30)
[2018-05-18] MEDS ORDERED: MAGNESIUM OXIDE 400 MG TAB PO SCH (09:00)
--- NOTE | 2018-05-18 09:03 | P.PN ---
Subjective Progress Note Date: 05/18/18 This is a 72-year-old male who is status post right total knee arthroplasty. This is postoperative day #1. Patient is seen and evaluated at bedside with Dr. Olu Ackerman. Patient was transferred to [facility] overnight for management of atrial fibrillation. Likely new-onset atrial fibrillation was discovered when the patient presented for surgery, patient was cleared to [facility] with surgery by anesthesia and his primary care physician. Patient is currently on a Cardizem drip and cardiology consult is pending. Patient states that his pain is very well controlled and he has been up and walking with physical therapy. Patient denies any fever/chills, numbness, weakness, tingling, abdominal pain, shortness of breath or chest pain. Objective - Vital Signs Vital signs: Vital Signs Temp 97.9 F 05/18/18 04:33 Pulse 97 05/18/18 04:35 Resp 16 05/18/18 04:33 BP 134/79 05/18/18 04:33 Pulse Ox 95 05/18/18 04:33 Intake & Output 05/17/18 05/18/18 05/18/18 18:59 06:59 18:59 Intake Total 1351 410 360 Output Total 50 3244 Balance 1301 -2834 360 Weight 98 kg Intake: IV 1351 Intake, IV Titration 130 Amount Sodium Chloride 0.9% 1, 130 000 ml @ 65 mls/hr IV . [id number] [facility] Rx#:[id number] Oral 280 360 Output: Urine 2690 Straight 1070 Post Void Residual 554 Estimated Blood Loss 50 Other: Voiding Method Urinal # Voids 1 - Exam Vital signs are stable. Patient is in no acute distress and is alert and oriented 3. Calf is soft and nontender to palpation. Dressing is clean, dry, and intact. Patient has full foot and ankle motion without pain or difficulty. Neurovascular status and circulatory status are intact. - Labs CBC & Chem 7: 05/18/18 06:05 05/18/18 06:05 Labs: Abnormal Lab Results - Last 24 Hours (Table) 05/17/18 05/17/18 05/17/18 Range/Units 14:30 16:49 17:30 Plt Count (150-450) k/uL Neutrophils # (1.3-7.7) k/uL Lymphocytes # (1.0-4.8) k/uL Sodium (137-145) mmol/L Potassium (3.5-5.1) mmol/L Carbon Dioxide (22-30) mmol/L BUN (9-20) mg/dL Creatinine (0.66-1.25) mg/dL Glucose (74-99) mg/dL POC Glucose (mg/dL) 70 L 160 H (75-99) mg/dL Magnesium 1.3 L (1.6-2.3) mg/dL 05/17/18 05/17/18 05/18/18 Range/Units 21:09 22:03 05:45 Plt Count (150-450) k/uL Neutrophils # (1.3-7.7) k/uL Lymphocytes # (1.0-4.8) k/uL Sodium (137-145) mmol/L Potassium 5.5 H (3.5-5.1) mmol/L Carbon Dioxide (22-30) mmol/L BUN (9-20) mg/dL Creatinine (0.66-1.25) mg/dL Glucose (74-99) mg/dL POC Glucose (mg/dL) 347 H 304 H (75-99) mg/dL Magnesium (1.6-2.3) mg/dL 05/18/18 05/18/18 Range/Units 06:05 06:05 Plt Count 117 L (150-450) k/uL Neutrophils # 9.0 H (1.3-7.7) k/uL Lymphocytes # 0.5 L (1.0-4.8) k/uL Sodium 136 L (137-145) mmol/L Potassium (3.5-5.1) mmol/L Carbon Dioxide 21 L (22-30) mmol/L BUN 28 H (9-20) mg/dL Creatinine 1.70 H (0.66-1.25) mg/dL Glucose 299 H (74-99) mg/dL POC Glucose (mg/dL) (75-99) mg/dL Magnesium (1.6-2.3) mg/dL Assessment and Plan Plan: #1 Continue with routine postoperative care and pain control, leave dressing in place for ten days. #2 Anticoagulation per internal medicine and cardiology. #3 Physical therapy and CPM today. #4 Appreciate input from medicine. #5 Cardiology consult is pending. #6 Anticipate discharge home with home care when cleared medically.
--- NOTE | 2018-05-18 09:05 | P.CRDCN ---
History of Present Illness Consult date: 05/18/18 Requesting physician: Liat Hemphill Consult reason: atrial fibrillation Chief complaint: Status right post total knee arthroplasty History of present illness: This is a pleasant 72-year-old gentleman who follows regularly with Dr. Hart in the office. He has a known history of diabetes, hypothyroidism, chronic kidney disease stage III, primary thrombocytopenia, history of renal cancer with right nephrectomy, hypertension, nonsmoker, who is status post elective right knee arthroplasty performed yesterday. It was noted on the monitor that the patient was in atrial fibrillation and for this reason a cardiology consultation was obtained. Patient's initial EKG performed here yest erd morning does show atrial fibrillation/flutter with an incomplete right bundle branch block pattern, subsequent EKG performed last evening continues to show atrial fibrillation. Upon review of EKG performed April 28 , it appears that the patient was in an atrial flutter at that time as well. According to the patient, he has not been told in the past to have any irregularity of heartbeat before. At the time of my examination this morning, patient feels well, he is ready been seen by orthopedics this morning and was cleared for discharge. Blood pressure 134/78, heart rate in the 80s to 90s, 95% on room air. White blood cell count 10.2, hemoglobin 14.2, platelet count 117. Sodium 136, potassium 4.6, BUN 28 and creatinine 1.7. Magnesium level I.3 from yesterday, TSH level I.4, BNP 805. Patient is currently on a Cardizem drip at 5 mg per hour. Past Medical History Past Medical History: Cancer, Diabetes Mellitus, GERD/Reflux, Hypertension, Prostate Disorder, Sleep Apnea/CPAP/BIPAP, Thyroid Disorder Additional Past Medical History / Comment(s): HX Right KIDNEY CA. Enlarged Prostate. SLEEP APNEA RESOLVED. Hiatal Hernia CORRECTED. HX COLON POLYPS. History of Any Multi-Drug Resistant Organisms: None Reported Past Surgical History: Bowel Resection, Cholecystectomy, Hernia Repair, Orthopedic Surgery, Tonsillectomy Additional Past Surgical History / Comment(s): RT NEPHRECTOMY. RT KNEE ARTHROSCOPY. HIATAL , RT ING Hernia Repair X2 , TRI 05/17/2018 Past Anesthesia/Blood Transfusion Reactions: No Reported Reaction Past Psychological History: No Psychological Hx Reported Smoking Status: Never smoker Past Alcohol Use History: None Reported Past Drug Use History: None Reported - Past Family History Brother(s) Family Medical History: Cancer Additional Family Medical History / Comment(s): prostate Mother Family Medical History: Cancer Father Family Medical History: Diabetes Mellitus Sister(s) Family Medical History: No Reported History Daughter(s) Family Medical History: No Reported History Son(s) Family Medical History: No Reported History Medications and Allergies Home Medications Medication Instructions Recorded Confirmed Type Insulin Glargine [Lantus] 27 unit SQ AC-BRKFST 09/20/13 05/17/18 History Levothyroxine Sodium [Synthroid] 200 mcg PO DAILY 09/20/13 05/17/18 History glipiZIDE [Glucotrol] 5 mg PO BID 09/20/13 05/17/18 History Doxazosin Mesylate [Cardura] 8 mg PO DAILY@1800 05/10/15 05/17/18 History Insulin Glargine [Lantus] 23 unit SQ DAILY@1800 05/02/18 05/17/18 History Omeprazole [PriLOSEC] 20 mg PO DAILY 05/02/18 05/17/18 History Apixaban [Eliquis] 5 mg PO BID #60 tab 05/18/18 Rx Atorvastatin [Lipitor] 40 mg PO HS #30 tab 05/18/18 Rx Carvedilol [Coreg*] 25 mg PO BID-W/MEALS #60 tab 05/18/18 Rx HYDROcodone/APAP 5-325MG [[place] 1 - 2 tab PO Q6HR PRN #56 tab 05/18/18 Rx 5-325] Magnesium Oxide [Mag-Ox] 400 mg PO DAILY tab 05/18/18 Rx Sennosides [Senokot] 1 tab PO BID #60 tablet 05/18/18 Rx Allergies Allergy/AdvReac Type Severity Reaction Status Date / Time Penicillins Allergy Rash/Hives Verified 05/17/18 15:21 Physical Exam Vitals: Vital Signs Temp Pulse Pulse Pulse Pulse Resp BP 05/18/18 04:35 97 05/18/18 04:33 97.9 F 97 16 134/79 05/18/18 00:50 87 05/18/18 00:45 97.7 F 87 16 115/77 05/17/18 21:37 98 F 112 H 16 127/82 05/17/18 20:00 108 H 16 05/17/18 18:28 98.4 F 102 H 16 136/92 05/17/18 17:15 105 H 120/81 05/17/18 16:30 104 H 119/81 05/17/18 16:15 104 H 128/89 05/17/18 16:04 108 H 137/81 05/17/18 16:00 107 H 127/86 05/17/18 15:30 99 127/79 05/17/18 14:49 97 16 141/77 05/17/18 14:34 95 16 134/86 05/17/18 14:19 97.7 F 89 105 H 16 143/102 05/17/18 14:04 87 16 129/81 05/17/18 13:49 98 F 80 16 106/57 05/17/18 11:36 81 16 05/17/18 10:28 96.0 F L 103 H 16 BP Pulse Ox 05/18/18 04:35 05/18/18 04:33 95 05/18/18 00:50 05/18/18 00:45 94 L 05/17/18 21:37 96 05/17/18 20:00 05/17/18 18:28 97 05/17/18 17:15 05/17/18 16:30 05/17/18 16:15 05/17/18 16:04 05/17/18 16:00 05/17/18 15:30 05/17/18 14:49 96 05/17/18 14:34 98 05/17/18 14:19 95 05/17/18 14:04 94 L 05/17/18 13:49 95 05/17/18 11:36 122/74 98 05/17/18 10:28 126/94 97 Intake and Output 05/17/18 05/18/18 05/18/18 22:59 06:59 14:59 Intake Total 410 360 Output Total 1640 1604 Balance -1230 -1604 360 Intake: Intake, IV Titration 130 Amount Sodium Chloride 0.9% 1, 130 000 ml @ 65 mls/hr IV . [id number] COUNT INCLUDES THE [facility] Rx#:[id number] Oral 280 360 Output: Urine 1640 1050 Straight 820 250 Post Void Residual 554 Other: Voiding Method Urinal Urinal # Voids 0 1 Weight 98 kg PHYSICAL EXAMINATION: GENERAL: 72-year-old gentleman in no acute distress at the time of my examination HEENT: Head is atraumatic, normocephalic. Pupils equal, round. Sclera anicteric. Conjunctiva are clear. Mucous membranes of the mouth are moist. Neck is supple. There is no elevated jugular venous pressure. No carotid bruit is heard. HEART EXAMINATION: Heart S1 and S2 irregularly irregular CHEST EXAMINATION: Lungs are clear to auscultation and precussion. No chest wall tenderness is noted on palpation or with deep breathing. ABDOMEN: Soft, nontender. Bowel sounds are heard. No organomegaly noted. EXTREMITIES: 2+ peripheral pulses with no evidence of peripheral edema and no calf tenderness noted. Dressing in place to right knee is dry and intact NEUROLOGIC patient is awake, alert and oriented 3 . . Results 05/18/18 06:05 05/18/18 06:05 Cardiac Enzymes 05/17/18 Range/Units 17:30 Troponin I <0.012 (0.000-0.034) ng/mL CBC 05/18/18 Range/Units 06:05 WBC 10.2 (3.8-10.6) k/uL RBC 4.55 (4.30-5.90) m/uL Hgb 14.2 (13.0-17.5) gm/dL Hct 42.1 (39.0-53.0) % Plt Count 117 L (150-450) k/uL Comprehensive Metabolic Panel 05/17/18 05/18/18 Range/Units 21:09 06:05 Sodium 136 L (137-145) mmol/L Potassium 5.5 H 4.6 (3.5-5.1) mmol/L Chloride 105 (98-107) mmol/L Carbon Dioxide 21 L (22-30) mmol/L BUN 28 H (9-20) mg/dL Creatinine 1.70 H (0.66-1.25) mg/dL Glucose 299 H (74-99) mg/dL Calcium 8.4 (8.4-10.2) mg/dL Current Medications Generic Name Dose Route Start Last Admin Trade Name Freq PRN Reason Stop Dose Admin Hydrocodone Bitart/Acetaminophen 1 each 05/17/18 11:47 [place] 5-325 PO Q6HR PRN Pain Scale 1 to 5 Hydrocodone Bitart/Acetaminophen 2 each 05/17/18 11:47 [place] 5-325 PO Q6HR PRN Pain Scale 6 to 10 Aspirin 325 mg 05/17/18 21:00 05/18/18 08:30 Aspirin PO 325 mg BID KIMANI Administration Bisacodyl 10 mg 05/17/18 11:47 Dulcolax RECTAL DAILY PRN Constipation Carvedilol 12.5 mg 05/17/18 17:30 05/18/18 06:42 Coreg PO 12.5 mg BID-W/MEALS KIMANI Administration Ropivacaine 1,100 mg/ Sodium 0 mg 05/17/18 12:19 05/17/18 14:18 Chloride 330 ml MISCELLANE 1,100 mg CONTINUOUS PRN Administration Breakthrough Pain Diazepam 2.5 mg 05/17/18 11:47 Valium PO Q8HR PRN Mild Spasms Doxazosin Mesylate 8 mg 05/17/18 18:00 05/17/18 17:18 Cardura PO 8 mg DAILY@1800 COUNT INCLUDES THE [facility] Administration Glipizide 5 mg 05/18/18 07:30 05/18/18 06:42 Glucotrol PO 5 mg AC-BID KIMANI Administration Hydromorphone HCl 0.125 mg 05/17/18 11:47 Dilaudid IVP Q3HR PRN Pain Scale 1 to 3 Hydromorphone HCl 0.25 mg 05/17/18 11:47 Dilaudid IVP Q3HR PRN Pain Scale 4 to 6 Hydromorphone HCl 0.5 mg 05/17/18 11:47 Dilaudid IVP Q3HR PRN Pain Scale 7 to 10 Hydroxyzine Pamoate 25 mg 05/17/18 11:47 Vistaril PO Q4HR PRN Nausea, Anxiety, Pain Control Lactated Ringer's 1,000 mls @ 20 mls/hr 05/17/18 07:00 05/18/18 05:05 Lactated Ringers IV Not Given .Q24H KIMANI Sodium Chloride 1,000 mls @ 65 mls/hr 05/17/18 12:00 05/18/18 06:42 Saline 0.9% IV 65 mls/hr .[id number] KIMANI Administration Diltiazem HCl 125 mg/ Sodium 125 mls @ 5 mls/hr 05/17/18 20:30 05/17/18 21:01 Chloride IV 5 mg/hr .Q24H KIMANI 5 mls/hr Administration 5 MG/HR Insulin Aspart 0 unit 05/17/18 17:30 05/18/18 07:09 Novolog SQ 5 unit ACHS COUNT INCLUDES THE [facility] Administration Protocol Insulin Detemir 11 unit 05/17/18 18:00 05/17/18 17:18 Levemir SQ 11 unit DAILY@1800 KIMANI Administration Insulin Detemir 27 unit 05/18/18 07:30 05/18/18 08:29 Levemir SQ 27 unit AC-BRKFST COUNT INCLUDES THE [facility] Administration Levothyroxine Sodium 200 mcg 05/18/18 06:30 05/18/18 06:42 Synthroid PO 200 mcg DAILY@0630 COUNT INCLUDES THE [facility] Administration Magnesium Hydroxide 2,400 mg 05/17/18 11:47 Milk Of Magnesia PO DAILY PRN Constipation Magnesium Oxide 400 mg 05/18/18 09:00 05/18/18 08:30 Mag-Ox PO 400 mg DAILY COUNT INCLUDES THE [facility] Administration Naloxone HCl 0.2 mg 05/17/18 11:47 Narcan IV Q2M PRN Opioid Reversal Ondansetron HCl 4 mg 05/17/18 11:47 Zofran IVP Q8HR PRN Nausea And Vomiting Pantoprazole Sodium 40 mg 05/18/18 07:30 05/18/18 06:42 Protonix PO 40 mg AC-BRKFST COUNT INCLUDES THE [facility] Administration Senna/Docusate Sodium 2 each 05/17/18 21:00 05/17/18 22:08 Senokot-S PO 2 each HS COUNT INCLUDES THE [facility] Administration Sodium Biphosphate/Sodium Phosphate 133 ml 05/17/18 11:47 Fleet Adult RECTAL DAILY PRN Constipation Intake and Output 05/17/18 05/18/18 05/18/18 22:59 06:59 14:59 Intake Total 410 360 Output Total 1640 1604 Balance -1230 -1604 360 Intake: Intake, IV Titration 130 Amount Sodium Chloride 0.9% 1, 130 000 ml @ 65 mls/hr IV . [id number] COUNT INCLUDES THE [facility] Rx#:[id number] Oral 280 360 Output: Urine 1640 1050 Straight 820 250 Post Void Residual 554 Other: Voiding Method Urinal Urinal # Voids 0 1 Weight 98 kg 05/18/18 06:05 05/18/18 06:05 EKG Interpretations (text) EKG shows atrial flutter atypical Assessment and Plan Plan: Assessment and plan #1 status post right knee arthroplasty #2 diabetes #3 hypertension #4 chronic kidney disease stage III, status post prior nephrectomy for cancer #5 atrial fibrillation paroxysmal Plan We will obtain an old EKG from Dr. Mckee office. It does appear that the EKG performed in April prior to surgery was atrial fib/flutter. We will obtain an echocardiogram with Doppler TSH level was normal. Discontinue IV Cardizem, increase dose of Coreg, or consider changing over to Toprol. Replace magnesium. As the patient is a known diabetic, we will also initiate statin. I discussed with the patient the importance of anticoagulation for stroke prevention, and on Eliquis if okay with orthopedics further recommendations to follow. DNP note has been reviewed, I agree with a documented findings and plan of care. Patient was seen and examined.
[2018-05-18] MEDS ORDERED: APIXABAN 5 MG TAB PO SCH (09:15)
[2018-05-18] MEDS: MAGNESIUM SULFATE-D5W PMX 1 GM in DEXTROSE/WATER 1 100ML.BAG IVPB SCH ×2 (10:00→12:20)
--- NOTE | 2018-05-18 10:21 | P.DS ---
Providers Date of admission: 05/17/18 09:55 Expected date of discharge: 05/18/18 Attending physician: Olu Ackerman Consults: 05/17/18 11:49 Consult Physician Routine Consulting Provider: Wander Flood Consult Reason/Comments: medical management and anticoagulation Do you want consulting provider notified?: Yes 05/17/18 17:08 Consult Physician Routine Consulting Provider: Ariel Harrington Consult Reason/Comments: new onset p. afib post op Do you want consulting provider notified?: Yes Primary care physician: Wander Flood - Discharge Diagnosis(es) (1) Osteoarthritis of right knee Current Visit: Yes Status: Acute (2) Atrial fibrillation and flutter Current Visit: Yes Status: Acute Hospital Course: This is a 72-year-old male with known history of degenerative arthritis of the right knee. The patient presents for evaluation. After discussion and consideration patient elects to proceed with total knee arthroplasty. The patient is seen preoperatively by Dr. Ackerman and medically cleared for surgery by their primary care physician. Patient is admitted to [facility] on 05/17/2018 for total knee arthroplasty. The procedures performed without complication or sequelae. The patient is doing well postoperatively. Labs and vital signs are stable on day of discharge. Patient was found to have atrial fibrillation and flutter during this stay. Cardiology has evaluated the patient and started him on Coreg and Eliquis. On day of discharge patient's knee incision is healing well. There is minimal erythema. There is no drainage noted at this time. There is minimal soft tissue swelling to the knee. Patient has full foot and ankle motion without difficulty or pain. Calf is soft and nontender to palpation. Neurovascular status to the right lower extremity is intact. Patient is discharged home in good condition. Opioid start talking form is reviewed and signed at patient bedside. Please see med rec for accurate list of home medications. Plan - Discharge Summary Discharge Rx Participant: Yes New Discharge Prescriptions: New HYDROcodone/APAP 5-325MG [[place] 5-325] 1 - 2 tab PO Q6HR PRN #56 tab PRN Reason: Pain Sennosides [Senokot] 1 tab PO BID #60 tablet No Action glipiZIDE [Glucotrol] 5 mg PO BID Levothyroxine Sodium [Synthroid] 200 mcg PO DAILY Insulin Glargine [Lantus] 27 unit SQ AC-BRKFST Carvedilol [Coreg] 12.5 mg PO BID Doxazosin Mesylate [Cardura] 8 mg PO DAILY@1800 Omeprazole [PriLOSEC] 20 mg PO DAILY Insulin Glargine [Lantus] 23 unit SQ DAILY@1800 Discharge Medication List Insulin Glargine [Lantus] 27 unit SQ -BRKFST 09/20/13 [History] Levothyroxine Sodium [Synthroid] 200 mcg PO DAILY 09/20/13 [History] glipiZIDE [Glucotrol] 5 mg PO BID 09/20/13 [History] Carvedilol [Coreg] 12.5 mg PO BID 05/10/15 [History] Doxazosin Mesylate [Cardura] 8 mg PO DAILY@1800 05/10/15 [History] Insulin Glargine [Lantus] 23 unit SQ DAILY@1800 05/02/18 [History] Omeprazole [PriLOSEC] 20 mg PO DAILY 05/02/18 [History] HYDROcodone/APAP 5-325MG [[place] 5-325] 1 - 2 tab PO Q6HR PRN #56 tab 05/18/18 [Rx] Sennosides [Senokot] 1 tab PO BID #60 tablet 05/18/18 [Rx] Follow up Appointment(s)/Referral(s): Wander Flood MD [Primary Care Provider] - 05/26/18 1:00 pm () Fred Ramos MD [STAFF PHYSICIAN] - 06/02/18 2:15 pm () Olu Ackerman DO [Doctor of Osteopathic Medicine] - 06/01/18 1:30 pm (Wednesday) Ambulatory/Diagnostic Orders: Continuous Passive Motion (CPM) Machine [DME.AMB1] Time Frame: 3 Weeks, Location: None Selected Patient Instructions/Handouts: A-fib (Atrial Fibrillation) (DC), Safe Use of Anticoagulants (DC), Continuous Passive Motion Machine (DC), Knee Replacement (DC) Activity/Diet/Wound Care/Special Instructions: Weightbearing as tolerated with a walker. CPM 5-6h daily. Leave dressing intact. May be removed by home care nurse or by patient in 10 days. May shower with dressing on. Anticoagulation with Eliquis per internal medicine and cardiology. Please follow up with [facility] and call with any questions or concerns, . Discharge Disposition: HOME WITH HOME HEALTH SERVICES
[2018-05-18 11:33] LABS: Glucose,Whole Blood 298 mg/dL (75-99)
[2018-05-18 13:18] VITALS: BP 131/81; PULSE 91; TEMP 97.7
--- NOTE | 2018-05-18 14:17 | ECHOF ---
Referral Reason:afib MEASUREMENTS -------- HEIGHT: 165.1 cm WEIGHT: 98.0 kg BP: 134/79 RVIDd: 3.4 cm (< 3.3) IVSd: 1.4 cm (0.6 - 1.1) LVIDd: 4.1 cm (3.9 - 5.3) LVPWd: 1.4 cm (0.6 - 1.1) IVSs: 1.8 cm LVIDs: 3.1 cm LVPWs: 1.8 cm LA Diam: 4.0 cm (2.7 - 3.8) LAESV Index (A-L): 30.56 ml/m Ao Diam: 3.3 cm (2.0 - 3.7) AV Cusp: 2.3 cm (1.5 - 2.6) MV EXCURSION: 16.312 mm (> 18.000) MV EF SLOPE: 78 mm/s (70 - 150) EPSS: 0.6 cm RAP: 5.00 mmHg RVSP: 31.41 mmHg FINDINGS -------- Atrial fibrillation. This was a technically adequate study. The left ventricular size is normal. There is moderate concentric left ventricular hypertrophy. O verall left ventricular systolic function is normal with, an EF between 55 - 60 %. Left ventricular fillimg pressure cannot be estimated due to Atrial fibrillation. The right ventricle is mildly enlarged. LA is midly dilated 29-33ml/m2. The right atrium is normal in size. There is mild aortic valve sclerosis. Mild mitral annular calcification present. There is trace mitral regurgitation. Mild tricuspid regurgitation present. Right ventricular systolic pressure is normal at < 35 mmHg. The pulmonic valve was not well visualized. Trace/mild (physiologic) pulmonic regurgitation. The aortic root size is normal. IVC Not well visulized. There is no pericardial effusion. CONCLUSIONS -------- 1. Atrial fibrillation. 2. This was a technically adequate study. 3. The left ventricular size is normal. 4. There is moderate concentric left ventricular hypertrophy. 5. Overall left ventricular systolic function is normal with, an EF between 55 - 60 %. 6. The right ventricle is mildly enlarged. 7. LA is midly dilated 29-33ml/m2. 8. There is mild aortic valve sclerosis. 9. Mild mitral annular calcification present. 10. There is trace mitral regurgitation. 11. Mild tricuspid regurgitation present. 12. Right ventricular systolic pressure is normal at < 35 mmHg. 13. Trace/mild (physiologic) pulmonic regurgitation. 14. The aortic root size is normal. 15. IVC Not well visulized. 16. There is no pericardial effusion. PSYCHOLOGY TEACHER: Carla Porter RDCS
[2018-05-18 14:27] LABS: Hemoglobin A1C 7.6 % (4.0-6.0)
--- NOTE | 2018-05-18 14:48 | P.PN ---
Subjective Progress Note Date: 05/18/18 This is a 72-year-old gentleman patient of Dr. Flood, underlying history of hypothyroidism and diabetes mellitus type 2, CK D stage III, idiopathic peripheral neuropathy, hemorrhoids, primary thrombocytopenia, paroxysmal esophagus CAD renal cancer with right nephrectomy, scheduled right total knee arthroplasty on 05/17/2018, patient is seen postoperatively, without any new complaints, except for mild postop nausea, patient does not have any chest pain or shortness of breath, no lightheadedness, no melena no hematochezia. Patient denies any history of previous DVT in the past currently in orthopedic floor, was noted to have new onset afib in surgery preholding area, with singificant ectopy when seen in floor with stable vital signs, ekg requested, cardiology consult for new onset afib 05/18: Patient is seen on the cardiac stepdown unit. Patient has been seen by cardiology and started on eliquis and Coreg dose increased. Cardiology is also recommended that the patient be on atorvastatin. Patient denies having any chest pain, palpitations, lightheadedness or dizziness. Patient has been cleared by cardiology and orthopedics. Medication reconciliation will be reviewed. Patient will be discharged today in stable condition. Review Of Systems: Constitutional: No fever, no chills, no night sweats. No weight change. No weakness, fatigue or lethargy. No daytime sleepiness. EENT: No headache. No blurred vision or double vision, no loss of vision. No loss of Hearing, no ringing in the ears, no dizziness. No nasal drainage or congestion. No epistaxis. No sore throat. Lungs: No shortness of breath, cough, no sputum production. No wheezing. Cardiovascular: No chest pain, no lower extremity edema. No palpitations. No paroxysmal nocturnal dyspnea. No orthopnea. No lightheadedness or dizziness. No syncopal episodes. Abdominal: No abdominal pain. No nausea, vomiting. No diarrhea. No constipation. No bloody or tarry stools.. No loss of appetite. Genitourinary: No dysuria, increased frequency, urgency. No urinary retention. Musculoskeletal: No myalgias. No muscle weakness, no gait dysfunction, no frequent falls. No back pain. No neck pain. Reports Right knee discomfort Integumentary: No wounds, no lesions. No rash or pruritus. No unusual bruising. No change in hair or nails. Neurologic: No aphasia. No facial droop. No change in mentation. No head injury. No headache. No paralysis. No paresthesia. Psychiatric: No depression. No anxiety. No mood swings. Endocrine: No abnormal blood sugars. No weight change. No excessive sweating or thirst. No cold intolerance. No weight change. Objective - Vital Signs Vital signs: Vital Signs Temp 97.9 F 05/18/18 04:33 Pulse 97 05/18/18 04:35 Resp 16 05/18/18 04:33 BP 134/79 05/18/18 04:33 Pulse Ox 95 05/18/18 04:33 Intake & Output 05/17/18 05/18/18 05/18/18 18:59 06:59 18:59 Intake Total 1351 410 360 Output Total 50 3244 Balance 1301 -2834 360 Weight 98 kg Intake: IV 1351 Intake, IV Titration 130 Amount Sodium Chloride 0.9% 1, 130 000 ml @ 65 mls/hr IV . [id number] [facility] Rx#:[id number] Oral 280 360 Output: Urine 2690 Straight 1070 Post Void Residual 554 Estimated Blood Loss 50 Other: Voiding Method Urinal # Voids 1 - Exam General appearance: cooperative, obese - EENT Eyes: anicteric sclerae, EOMI, PERRLA, dentition normal, normal appearance ENT: NA/AT, normal oropharynx - Neck Neck: normal ROM - Respiratory Respiratory: bilateral: CTA, negative: diminished, dullness, rales, rhonchi - Cardiovascular Rhythm: Irregularly irregular, rate controlled, classroom monitor atrial fibrillation Abnormal Heart Sounds: no systolic murmur, no diastolic murmur, no rub, no S3 Gallop, no S4 Gallop, no click, no other - Gastrointestinal General gastrointestinal: normal bowel sounds, soft - Integumentary Integumentary: normal, normal turgor - Neurologic Neurologic: CNII-XII intact - Musculoskeletal Musculoskeletal: gait normal, strength equal bilaterally - Labs CBC & Chem 7: 05/18/18 06:05 05/18/18 06:05 Labs: Abnormal Lab Results - Last 24 Hours (Table) 05/17/18 05/17/18 05/17/18 Range/Units 14:30 16:49 17:30 Plt Count (150-450) k/uL Neutrophils # (1.3-7.7) k/uL Lymphocytes # (1.0-4.8) k/uL Sodium (137-145) mmol/L Potassium (3.5-5.1) mmol/L Carbon Dioxide (22-30) mmol/L BUN (9-20) mg/dL Creatinine (0.66-1.25) mg/dL Glucose (74-99) mg/dL POC Glucose (mg/dL) 70 L 160 H (75-99) mg/dL Magnesium 1.3 L (1.6-2.3) mg/dL 05/17/18 05/17/18 05/18/18 Range/Units 21:09 22:03 05:45 Plt Count (150-450) k/uL Neutrophils # (1.3-7.7) k/uL Lymphocytes # (1.0-4.8) k/uL Sodium (137-145) mmol/L Potassium 5.5 H (3.5-5.1) mmol/L Carbon Dioxide (22-30) mmol/L BUN (9-20) mg/dL Creatinine (0.66-1.25) mg/dL Glucose (74-99) mg/dL POC Glucose (mg/dL) 347 H 304 H (75-99) mg/dL Magnesium (1.6-2.3) mg/dL 05/18/18 05/18/18 Range/Units 06:05 06:05 Plt Count 117 L (150-450) k/uL Neutrophils # 9.0 H (1.3-7.7) k/uL Lymphocytes # 0.5 L (1.0-4.8) k/uL Sodium 136 L (137-145) mmol/L Potassium (3.5-5.1) mmol/L Carbon Dioxide 21 L (22-30) mmol/L BUN 28 H (9-20) mg/dL Creatinine 1.70 H (0.66-1.25) mg/dL Glucose 299 H (74-99) mg/dL POC Glucose (mg/dL) (75-99) mg/dL Magnesium (1.6-2.3) mg/dL Assessment and Plan Plan: 1. Right total knee arthroplasty, postop day #0, performed secondary to advancing DJD, patient's receiving DVT prep prophylaxis, incentive spirometry, home medications are resumed, caution with regards to fluids shifts history of nephrectomy in the past, no history of CHF or PE. Patient would be receiving physical therapy, expected home therapy post discharge. Use of caution with opiates, advised for patient use 2. Paroxysmal atrial fibrillation. Cardiology consult appreciated. Cardizem drip discontinued. Coreg increased, eliquis started. Patient also started on atorvastatin 3. Diabetes mellitus type 2. Glipizide 10 mg one half tab twice a day, Lantus 20 units twice a day 4. Hypertension on Coreg 2.5 mg twice a day, patient is not on any HAILEY orARB or calcium channel abilio prior to admission, 5. Renal cell carcinoma right nephrectomy, monitor creatinine and hospital, avoid hypotension 6. CAD, on Coreg 12.5 mg twice a day, 7. Hypothyroidism on levothyroxine 100 g daily 8. BPH without lower tract symptomatology on doxazosin 8 mg daily 9. DVT prophylaxis, oral aspirin 325 mg twice a day\ 10. GI prophylaxis Discharge plan: home Impression and plan of care have been directed as dictated by the signing physician. Ellen Paez nurse practitioner acting as scribe for signing physician.
[2018-05-18] MEDS ORDERED: CARVEDILOL 12.5 MG TAB PO SCH (17:30)
[2018-05-18] MEDS ORDERED: ATORVASTATIN 40 MG TAB PO SCH (21:00)
== END 2018-05-18 13:50 | disposition home or self-care (01) | DRG 470 ==
LOC: 2ORMAIN 09:55 → 4SSUR 13:51 → 3SCARD 20:44
PROVIDERS: ADMIT Orthopaedic Surgery; ATTEND Orthopaedic Surgery
PROC: 0SRC069 Replacement of Right Knee Joint with Oxidized Zirconium on Polyethylene Synthetic Substitute, Cemented, Open Approach (ICD-10-PCS; principal; 2018-05-17 11:45)
DX: M17.11 Unilateral primary osteoarthritis, right knee (principal); I48.4 Atypical atrial flutter; D69.49 Other primary thrombocytopenia; E11.22 Type 2 diabetes mellitus with diabetic chronic kidney disease; I12.9 Hypertensive chronic kidney disease with stage 1 through stage 4 chronic kidney disease, or unspecified chronic kidney disease; N18.3 Chronic kidney disease, stage 3 (moderate); I48.0 Paroxysmal atrial fibrillation; I45.10 Unspecified right bundle-branch block; N40.0 Benign prostatic hyperplasia without lower urinary tract symptoms; E03.9 Hypothyroidism, unspecified; G60.9 Hereditary and idiopathic neuropathy, unspecified; K64.9 Unspecified hemorrhoids; I25.10 Atherosclerotic heart disease of native coronary artery without angina pectoris; K21.9 Gastro-esophageal reflux disease without esophagitis; G47.33 Obstructive sleep apnea (adult) (pediatric); E66.9 Obesity, unspecified; Z68.36 Body mass index [BMI] 36.0-36.9, adult; Z79.4 Long term (current) use of insulin; Z79.890 Hormone replacement therapy; Z79.899 Other long term (current) drug therapy; Z90.5 Acquired absence of kidney; Z85.528 Personal history of other malignant neoplasm of kidney; Z86.010 Personal history of colon polyps; Z90.49 Acquired absence of other specified parts of digestive tract; Z99.89 Dependence on other enabling machines and devices; Z88.0 Allergy status to penicillin; Z80.42 Family history of malignant neoplasm of prostate; Z83.3 Family history of diabetes mellitus
CPT/HCPCS: 80048; 83036; 83735; 83880; 84132; 84443; 84484; 85025; 88300; 93005; 93306

== ENCOUNTER 2018-11-30 08:01 | Day surgery (SDC) | payer MEDICARE ==
[2018-11-28 15:28] VITALS: BMI 34.1
[~2018-11-30 08:01] MED LIST changes: -ACETAMINOPHEN TAB 500 MG TAB PO ONE; -DEXAMETHASONE SOD PHOSPHATE 10 MG/ML 1 ML VIAL IV ONE; -HYDROmorphone 0.5 MG/0.5 ML SYRINGE IVP PRN; +LACTATED RINGERS 1,000 ML IV SCH; +LIDOCAINE 1% 20 ML VIAL (10MG/ML) FOR IV START INTRADERMA PRN; -MELOXICAM 7.5 MG TAB PO ONE; -MIDAZOLAM (PF) 2 MG/2 ML VIAL IV PRN; -ONDANSETRON 4 MG/2 ML VIAL IVP ONE; -ROPIVACAINE 246.25 MG, EPINEPHrine 0.5 MG, KETOROLAC 30 MG, cloNIDine HCL/PF 80 MCG, WA... MISCELLANE ONE; -TRANEXAMIC ACID 1,000 MG in SODIUM CHLORIDE 0.9% 100 ML IVPB ONE; -ceFAZolin IN SWFI 2 GM/20 ML SYRINGE IVP ONE
[2018-11-30 08:36] VITALS: RESP 16; TEMP 97.4
[2018-11-30 08:41] LABS: Glucose,Whole Blood 79 mg/dL (75-99)
--- NOTE | 2018-11-30 08:44 | P.GSHP ---
History of Present Illness H&P Date: 11/30/18 CHIEF COMPLAINT: GERD and colon screen HISTORY OF PRESENT ILLNESS: The patient is a 73-year-old male who presents with gastroesophageal reflux disease and need for colon screen. Upper and lower endoscopy were offered for further evaluation and management. PAST MEDICAL HISTORY: Please see list. PAST SURGICAL HISTORY: Please see list. MEDICATIONS: Please see list. ALLERGIES: Please see list. SOCIAL HISTORY: No illicit drug use FAMILY HISTORY: No reports of Crohn disease or ulcerative colitis. REVIEW OF ORGAN SYSTEMS: CONSTITUTIONAL: No reports of fevers or chills. GI: Denies any blood in stools or constipation. PHYSICAL EXAM: VITAL SIGNS: Stable GENERAL: Well-developed pleasant in no acute distress. HEENT: No scleral icterus. Extraocular movements grossly intact. Moist buccal mucosa. NECK: Supple without lymphadenopathy. CHEST: Unlabored respirations. Equal bilateral excursions. CARDIOVASCULAR: Regular rate and rhythm. Distal 2+ pulses. ABDOMEN: Soft, nondistended. MUSCULOSKELETAL: No clubbing, cyanosis, or edema. ASSESSMENT: 1. Gastroesophageal reflux disease 2. Colon screen. PLAN: 1. Recommend proceeding with an upper and lower endoscopy Past Medical History Past Medical History: Cancer, Diabetes Mellitus, GERD/Reflux, Hypertension, Prostate Disorder, Sleep Apnea/CPAP/BIPAP, Thyroid Disorder Additional Past Medical History / Comment(s): HX Right KIDNEY CA. Enlarged Prostate. SLEEP APNEA RESOLVED. Hiatal Hernia CORRECTED. HX COLON POLYPS. History of Any Multi-Drug Resistant Organisms: None Reported Past Surgical History: Bowel Resection, Cholecystectomy, Hernia Repair, Joint Replacement, Orthopedic Surgery, Tonsillectomy Additional Past Surgical History / Comment(s): RT NEPHRECTOMY. RT KNEE ARTHROSCOPY. HIATAL , RT ING Hernia Repair X2 , total rt knee Past Anesthesia/Blood Transfusion Reactions: No Reported Reaction Smoking Status: Never smoker - Past Family History Brother(s) Family Medical History: Cancer Additional Family Medical History / Comment(s): "went once a month to clean his blood" Mother History Unknown: Yes Family Medical History: Cancer Father Family Medical History: Diabetes Mellitus Sister(s) Family Medical History: No Reported History Daughter(s) Family Medical History: No Reported History Son(s) Family Medical History: No Reported History Medications and Allergies Home Medications Medication Instructions Recorded Confirmed Type Insulin Glargine [Lantus] 25 unit SQ AC-BRKFST 09/20/13 11/28/18 History Levothyroxine Sodium [Synthroid] 100 mcg PO QAM 09/20/13 11/28/18 History glipiZIDE [Glucotrol] 5 mg PO BID 09/20/13 11/28/18 History Doxazosin Mesylate [Cardura] 8 mg PO HS 05/10/15 11/28/18 History Insulin Glargine [Lantus] 24 unit SQ HS 05/02/18 11/28/18 History Omeprazole [PriLOSEC] 20 mg PO DAILY 05/02/18 11/28/18 History Apixaban [Eliquis] 5 mg PO BID #60 tab 05/18/18 11/28/18 Rx Carvedilol [Coreg*] 25 mg PO BID-W/MEALS #60 tab 05/18/18 11/28/18 Rx Magnesium Oxide [Mag-Ox] 400 mg PO DAILY tab 05/18/18 11/28/18 Rx Allergies Allergy/AdvReac Type Severity Reaction Status Date / Time Penicillins Allergy Rash/Hives Verified 11/30/18 08:24 Surgical - Exam Vital Signs Temp Pulse Resp BP Pulse Ox 97.4 F L 84 16 119/71 97 11/30/18 08:34 11/30/18 08:34 11/30/18 08:34 11/30/18 08:34 11/30/18 08:34
[2018-11-30] MEDS ORDERED: PROPOFOL 10 MG/ML 20 ML VIAL IV ONE (08:52)
[2018-11-30] MEDS ORDERED: LIDOCAINE 1% INJ 10MG/ML (20 ML MDV) ONE (08:52)
--- NOTE | 2018-11-30 09:27 | P.PCN ---
Date of Procedure: 11/30/18 Description of Procedure: PREOPERATIVE DIAGNOSIS: Waterman's esophagus History Baldev fundoplasty Gastroesophageal reflux disease. Morbid obesity. POSTOPERATIVE DIAGNOSIS: Waterman's esophagus History Baldev fundoplasty Gastroesophageal reflux disease. Morbid obesity. OPERATION: Esophagogastroduodenoscopy with biopsies along distal esophagus for Waterman's SURGEON: Suze Herbert MD ANESTHESIA: MAC. INDICATIONS: The patient is a 73-year-old female who presents with a history of reflux disease. Benefits and risks of the procedure were described. Informed consent was obtained. DESCRIPTION: The patient was brought into the endoscopy suite and laid in the left lateral decubitus position. An Olympus gastroscope was passed along the posterior oropharynx down to the distal esophagus where the squamocolumnar junction was encountered at 40 cm from the incisors. The stomach was entered and no bile reflux was found. Additional findings are listed below. Biopsies with cold forceps were obtained of the distal esophagus for short segment Waterman's esophagus The first through third portion of the duodenum was examined and unremarkable. Retroflexion of the scope confirmed Hill grade 1+ lower esophageal valve. The squamocolumnar junction demonstrated LA grade D erosive esophagitis. The stomach was desufflated. The patient tolerated the procedure well. FINDINGS: Squamocolumnar junction 40 cm from the incisors. Diaphragmatic hiatus at 40 cm. No recurrent diaphragmatic hiatal hernia Intact Baldev fundoplasty Hill grade 1+ lower esophageal valve. LA grade D erosive esophagitis for short segment Waterman's 1 cm with skipped lesions less than 5 mm x 2 No active duodenitis. Chronic gastritis RECOMMENDATIONS: Upper endoscopy in 3 years, 2021
--- NOTE | 2018-11-30 09:32 | P.PCN ---
Date of Procedure: 11/30/18 Description of Procedure: PREOPERATIVE DIAGNOSIS: History of colon cancer History of right colectomy POSTOPERATIVE DIAGNOSIS: History of colon cancer History of right colectomy Proximal transverse colon polyp Hyperplastic colon polyp descending colon Diverticulosis, scattered. OPERATION: Colonoscopy with cold biopsy forceps Colonoscopy to the ileocolic anastomosis SURGEON: Suze Herbert MD. ANESTHESIA: MAC. INDICATIONS: The patient is a 73-year-old female who presents for colonoscopy surveillance following colon cancer over 6 years ago. He status post right colectomy. Last colonoscopy 3+ years ago. Benefits and risks were described and informed consent was obtained. DESCRIPTION OF PROCEDURE: The patient had undergone Suprep. He had been brought into the operating room and laid in the left lateral decubitus position. After adequate intravenous sedation, the rectum was examined with 2% lidocaine jelly. No external hemorrhoids were encountered. The rectal tone was within normal limits. No lesions were palpated in the rectal vault. An Olympus colonoscope was advanced until the ileocolic anastomosis. The prep was excellent with clear visualization of the mucosal folds. The scope was removed with visualization of each mucosal fold. Scattered diverticulosis was encountered. Colonic polyps were found and addressed using cold biopsy forceps. No evidence of focal colitis was found. Retroflexion of the scope demonstrated grade 1 internal hemorrhoids without active bleeding or inflammation. The colon was desufflated. The patient had tolerated the procedure well. Withdrawal time was over 6 minutes. FINDINGS: Aronchick preparation quality scale 1 (1-5) Internal hemorrhoids, grade 1 No external prolapsed hemorrhoids. No arteriovenous malformations. Removal of 2 polyps: -Cold biopsy forceps at proximal transverse colon, 4 mm adenoma -Cold biopsy forceps at 35 cm, descending colon, 3 mm hyperplastic polyp No focal colitis. RECOMMENDATIONS: Lower endoscopy in 3 years, 2021 Plan - Discharge Summary Discharge Rx Participant: No New Discharge Prescriptions: No Action glipiZIDE [Glucotrol] 5 mg PO BID Levothyroxine Sodium [Synthroid] 100 mcg PO QAM Insulin Glargine [Lantus] 12 unit SQ AC-BRKFST Doxazosin Mesylate [Cardura] 8 mg PO HS Omeprazole [PriLOSEC] 20 mg PO DAILY Insulin Glargine [Lantus] 24 unit SQ HS Carvedilol [Coreg*] 25 mg PO BID-W/MEALS #60 tab Apixaban [Eliquis] 5 mg PO BID #60 tab Magnesium Oxide [Mag-Ox] 400 mg PO DAILY tab Discharge Medication List Insulin Glargine [Lantus] 12 unit SQ AC-BRKFST 09/20/13 [History] Levothyroxine Sodium [Synthroid] 100 mcg PO QAM 09/20/13 [History] glipiZIDE [Glucotrol] 5 mg PO BID 09/20/13 [History] Doxazosin Mesylate [Cardura] 8 mg PO HS 05/10/15 [History] Insulin Glargine [Lantus] 24 unit SQ HS 05/02/18 [History] Omeprazole [PriLOSEC] 20 mg PO DAILY 05/02/18 [History] Apixaban [Eliquis] 5 mg PO BID #60 tab 05/18/18 [Rx] Carvedilol [Coreg*] 25 mg PO BID-W/MEALS #60 tab 05/18/18 [Rx] Magnesium Oxide [Mag-Ox] 400 mg PO DAILY tab 05/18/18 [Rx] Follow up Appointment(s)/Referral(s): Suze Herbert MD [STAFF PHYSICIAN] - As Needed Patient Instructions/Handouts: Colorectal Polyps (IP), Waterman Esophagus (DC) Activity/Diet/Wound Care/Special Instructions: Repeat EGD and Colon, 3 years, 2021 Discharge Disposition: HOME SELF-CARE
[2018-11-30 09:35] LABS: Glucose,Whole Blood 83 mg/dL (75-99)
[2018-11-30 09:55] VITALS: BP 123/87; PULSE 82
== END 2018-11-30 10:23 | disposition home or self-care (01) ==
LOC: ORWHC2ENDO 08:01
PROVIDERS: ATTEND Surgery Plastic and Reconstructive Surgery
DX: Z12.11 Encounter for screening for malignant neoplasm of colon (principal); D12.3 Benign neoplasm of transverse colon; K63.5 Polyp of colon; K63.89 Other specified diseases of intestine; K57.30 Diverticulosis of large intestine without perforation or abscess without bleeding; K64.0 First degree hemorrhoids; K22.70 Barrett's esophagus without dysplasia; K21.0 Gastro-esophageal reflux disease with esophagitis; K44.9 Diaphragmatic hernia without obstruction or gangrene; K29.50 Unspecified chronic gastritis without bleeding; I10 Essential (primary) hypertension; I48.91 Unspecified atrial fibrillation; E66.01 Morbid (severe) obesity due to excess calories; E11.9 Type 2 diabetes mellitus without complications; E07.9 Disorder of thyroid, unspecified; Z79.4 Long term (current) use of insulin; Z79.899 Other long term (current) drug therapy; Z79.01 Long term (current) use of anticoagulants; Z79.890 Hormone replacement therapy; Z96.651 Presence of right artificial knee joint; Z88.0 Allergy status to penicillin; Z85.038 Personal history of other malignant neoplasm of large intestine; Z90.49 Acquired absence of other specified parts of digestive tract; Z85.528 Personal history of other malignant neoplasm of kidney; Z86.010 Personal history of colon polyps; Z90.89 Acquired absence of other organs; Z83.3 Family history of diabetes mellitus; Z80.9 Family history of malignant neoplasm, unspecified; N40.0 Benign prostatic hyperplasia without lower urinary tract symptoms; Z90.5 Acquired absence of kidney; Z68.35 Body mass index [BMI] 35.0-35.9, adult
CPT/HCPCS: 88305; 45380; 43239; J2001; J2704

== ENCOUNTER → 2021-04-29 | Outpatient (CLI) | payer MEDICARE ==
--- NOTE | 2021-04-29 11:51 | XR ---
EXAMINATION TYPE: XR chest 2V DATE OF EXAM: 04/29/2021 COMPARISON: Chest x-ray 05/15/2015 HISTORY: U07.1, cough TECHNIQUE: Frontal and lateral views of the chest are obtained. FINDINGS: There is no focal air space opacity, pleural effusion, or pneumothorax seen. The cardiac silhouette size is within normal limits. The osseous structures are intact, there is thoracic spond ylosis, elevation of right hemidiaphragm. Surgical clips present in the right upper quadrant. IMPRESSION: No acute cardiopulmonary process. Follow-up as indicated.
== END | disposition home or self-care (01) ==
LOC: RADXRMAIN 10:17
PROVIDERS: ATTEND Nurse Practitioner Family
DX: U07.1 COVID-19 (principal)
CPT/HCPCS: 71046

== ENCOUNTER 2022-01-01 07:41 | Day surgery (SDC) | payer MEDICARE ==
[2021-12-30 14:11] VITALS: BMI 33.3
[~2022-01-01 07:41] MED LIST changes: -LIDOCAINE 1% 20 ML VIAL (10MG/ML) FOR IV START INTRADERMA PRN
--- NOTE | 2022-01-01 07:45 | P.GSHP ---
History of Present Illness H&P Date: 01/01/22 CHIEF COMPLAINT: GERD and colon screen HISTORY OF PRESENT ILLNESS: The patient is a 76-year-old male who presents with gastroesophageal reflux disease and need for colon screen. Upper and lower endoscopy were offered for further evaluation and management. PAST MEDICAL HISTORY: Please see list. PAST SURGICAL HISTORY: Please see list. MEDICATIONS: Please see list. ALLERGIES: Please see list. SOCIAL HISTORY: No illicit drug use FAMILY HISTORY: No reports of Crohn disease or ulcerative colitis. REVIEW OF ORGAN SYSTEMS: CONSTITUTIONAL: No reports of fevers or chills. GI: Denies any blood in stools or constipation. PHYSICAL EXAM: VITAL SIGNS: Stable GENERAL: Well-developed pleasant in no acute distress. HEENT: No scleral icterus. Extraocular movements grossly intact. Moist buccal mucosa. NECK: Supple without lymphadenopathy. CHEST: Unlabored respirations. Equal bilateral excursions. CARDIOVASCULAR: Regular rate and rhythm. Distal 2+ pulses. ABDOMEN: Soft, nondistended. MUSCULOSKELETAL: No clubbing, cyanosis, or edema. ASSESSMENT: 1. Gastroesophageal reflux disease 2. Colon screen. PLAN: 1. Recommend proceeding with an upper and lower endoscopy Past Medical History Past Medical History: Cancer, Diabetes Mellitus, GERD/Reflux, Hypertension, Prostate Disorder, Sleep Apnea/CPAP/BIPAP, Thyroid Disorder Additional Past Medical History / Comment(s): HX Right KIDNEY CA. Enlarged Prostate. Hx. of Hiatal Hernia HX COLON POLYPS. Hx. of hypertension. History of Any Multi-Drug Resistant Organisms: None Reported Past Surgical History: Bowel Resection, Cholecystectomy, Hernia Repair, Joint Replacement, Orthopedic Surgery, Tonsillectomy Additional Past Surgical History / Comment(s): RT NEPHRECTOMY. RT KNEE A RTHROSCOPY. HIATAL , RT ING Hernia Repair X2 , total rt knee Past Anesthesia/Blood Transfusion Reactions: No Reported Reaction Smoking Status: Never smoker - Past Family History Brother(s) Family Medical History: Cancer Additional Family Medical History / Comment(s): "went once a month to clean his blood" Mother History Unknown: Yes Family Medical History: Cancer Father Family Medical History: Diabetes Mellitus Sister(s) Family Medical History: No Reported History Daughter(s) Family Medical History: No Reported History Son(s) Family Medical History: No Reported History Medications and Allergies Home Medications Medication Instructions Recorded Confirmed Type Levothyroxine Sodium [Synthroid] 100 mcg PO QAM 09/20/13 12/30/21 History glipiZIDE [Glucotrol] 5 mg PO BID 09/20/13 12/30/21 History Doxazosin Mesylate [Cardura] 8 mg PO HS 05/10/15 12/30/21 History Insulin Glargine [Lantus Vial] 30 unit SQ PC-BRKFST 05/02/18 12/30/21 History Omeprazole [PriLOSEC] 20 mg PO DAILY 05/02/18 12/30/21 History Magnesium Oxide [Mag-Ox] 400 mg PO DAILY tab 05/18/18 12/30/21 Rx carvediloL [Coreg*] 25 mg PO BID-W/MEALS #60 tab 05/18/18 12/30/21 Rx Aspirin 81 mg PO DAILY 12/30/21 12/30/21 History Donepezil [Aricept] 5 mg PO HS 12/30/21 12/30/21 History Allergies Allergy/AdvReac Type Severity Reaction Status Date / Time Penicillins Allergy Rash/Hives Verified 12/30/21 13:53
[2022-01-01 08:24] VITALS: TEMP 97.1
[2022-01-01] MEDS ORDERED: PROPOFOL 10 MG/ML 20 ML VIAL IV ONE (08:39)
[2022-01-01] MEDS ORDERED: LIDOCAINE 2% INJ 20 MG/ML (2 ML VIAL) ONE (08:39)
[2022-01-01 08:40] LABS: Glucose,Whole Blood 67 mg/dL (70-110)
--- NOTE | 2022-01-01 08:41 | P.HPADDEND ---
H&P Addendum H&P Addendum Date: 01/01/22 Patient reports, pharmacy gave him GoLYTELY, not prescribed by office.
[2022-01-01 09:37] VITALS: BP 106/57; PULSE 67; RESP 18
--- NOTE | 2022-01-01 10:03 | P.PCN ---
Date of Procedure: 01/01/22 Description of Procedure: PREOPERATIVE DIAGNOSIS: Personal history colon cancer, ascending colon History of right colectomy POSTOPERATIVE DIAGNOSIS: Personal history colon cancer, ascending colon History of right colectomy OPERATION: Colonoscopy to the ileocolic anastomosis SURGEON: Suze Herbert MD. ANESTHESIA: MAC. INDICATIONS: The patient is a 76-year-old male who presents for colonoscopy screening. Benefits and risks were described and informed consent was obtained. DESCRIPTION OF PROCEDURE: The patient had undergone Sutab prep. The patient had been brought into the operating room and laid in the left lateral decubitus position. After adequate intravenous sedation, the rectum was examined with 2% lidocaine jelly. No external hemorrhoids were encountered. The rectal tone was within normal limits. No lesions were palpated in the rectal vault. An Olympus colonoscope was advanced until ileocolic anastomosis was achieved. The prep was excellent. No large scattered diverticulosis was encountered. No colonic polyps were found. No evidence of focal colitis was found. Retroflexion of the scope demonstrated grade 1 internal hemorrhoids without active bleeding or inflammation. The colon was desufflated. The patient had tolerated the procedure well. Withdrawal time was over 6 minutes. FINDINGS: Aronchick preparation quality scale 1 (1-5) Internal hemorrhoids, grade 1 No external prolapsed hemorrhoids. No arteriovenous malformations. No adenomatous polyps. No focal colitis. No large diverticulosis of the colon RECOMMENDATIONS: Lower endoscopy in 5 years, 2026 due to personal history colon cancer Plan - Discharge Summary Discharge Rx Participant: Yes New Discharge Prescriptions: Continue glipiZIDE [Glucotrol] 5 mg PO BID Levothyroxine Sodium [Synthroid] 100 mcg PO QAM Doxazosin Mesylate [Cardura] 8 mg PO HS Omeprazole [PriLOSEC] 20 mg PO DAILY Insulin Glargine [Lantus Vial] 30 unit SQ PC-BRKFST carvediloL [Coreg*] 25 mg PO BID-W/MEALS #60 tab Magnesium Oxide [Mag-Ox] 400 mg PO DAILY tab Aspirin 81 mg PO DAILY Donepezil [Aricept] 5 mg PO HS Discharge Medication List Levothyroxine Sodium [Synthroid] 100 mcg PO QAM 09/20/13 [History] glipiZIDE [Glucotrol] 5 mg PO BID 09/20/13 [History] Doxazosin Mesylate [Cardura] 8 mg PO HS 05/10/15 [History] Insulin Glargine [Lantus Vial] 30 unit SQ PC-BRKFST 05/02/18 [History] Omeprazole [PriLOSEC] 20 mg PO DAILY 05/02/18 [History] Magnesium Oxide [Mag-Ox] 400 mg PO DAILY tab 05/18/18 [Rx] carvediloL [Coreg*] 25 mg PO BID-W/MEALS #60 tab 05/18/18 [Rx] Aspirin 81 mg PO DAILY 12/30/21 [History] Donepezil [Aricept] 5 mg PO HS 12/30/21 [History] Follow up Appointment(s)/Referral(s): Suze Herbert MD [STAFF PHYSICIAN] - As Needed Patient Instructions/Handouts: Waterman Esophagus (GEN), Colonoscopy (DC) Activity/Diet/Wound Care/Special Instructions: Repeat colonoscopy 5 years, 2026 Discharge Disposition: HOME SELF-CARE
--- NOTE | 2022-01-01 10:22 | P.PCN ---
Date of Procedure: 01/01/22 Description of Procedure: PREOPERATIVE DIAGNOSIS: Gastroesophageal reflux disease. Waterman's esophagus History of Baldev fundoplasty POSTOPERATIVE DIAGNOSIS: Gastroesophageal reflux disease. Waterman's esophagus History of Baldev fundoplasty OPERATION: Esophagogastroduodenoscopy with biopsies along distal esophagus/Waterman's SURGEON: Suze Herbert MD ANESTHESIA: MAC. INDICATIONS: The patient is a 76-year-old female who presents with reflux disease. Benefits and risks of the procedure were described. Informed consent was obtained. DESCRIPTION: The patient was brought into the endoscopy suite and laid in the left lateral decubitus position. An Olympus gastroscope was passed along the posterior oropharynx down to the distal esophagus where the squamocolumnar junction was encountered at 40 cm from the incisors. The stomach was entered and no bile reflux was found. Additional findings are listed below. Biopsies with cold forceps were obtained of the antrum. The first through third portion of the duodenum was examined. Retroflexion of the scope confirmed Hill grade 1 lower esophageal valve. The squamocolumnar junction demonstrated LA grade B erosive esophagitis. The stomach was desufflated. The patient tolerated the procedure well. FINDINGS: Squamocolumnar junction 40 cm from the incisors. Diaphragmatic hiatus at 40 cm. Hill grade 1+ lower esophageal valve. LA grade D erosive esophagitis, Waterman's esophagus, 8-mm patch No active duodenitis. RECOMMENDATIONS: Repeat upper endoscopy 3 years, 2024
== END 2022-01-01 10:27 | disposition home or self-care (01) ==
LOC: ORWHC2ENDO 07:41
PROVIDERS: ATTEND Surgery Plastic and Reconstructive Surgery
DX: K22.70 Barrett's esophagus without dysplasia (principal); Z86.010 Personal history of colon polyps; I10 Essential (primary) hypertension; E11.9 Type 2 diabetes mellitus without complications; G47.30 Sleep apnea, unspecified; E07.9 Disorder of thyroid, unspecified; Z88.0 Allergy status to penicillin; K21.00 Gastro-esophageal reflux disease with esophagitis, without bleeding; K44.9 Diaphragmatic hernia without obstruction or gangrene
CPT/HCPCS: 88305; 43239; J2704; J2001; G0105; 45378

== ENCOUNTER → 2022-05-20 | Outpatient (CLI) | payer MEDICARE ==
--- NOTE | 2022-05-20 13:21 | XR ---
EXAMINATION TYPE: XR sternum DATE OF EXAM: 05/20/2022 COMPARISON: NONE HISTORY: Pain TECHNIQUE: 4 views submitted FINDINGS: Visualized sternum appears intact. Manubrial junction appears preserved. No evidence to sug gest a retrosternal abnormal attenuation. No diagnostic evidence of acute fracture or destructive les ion. Hypertrophic and degenerative changes of the visualized vertebral column. IMPRESSION: 1. No definite sternal abnormality by standard x-ray. If symptoms persist or clinical suspicion is hi gh consider CT scan chest.
== END | disposition home or self-care (01) ==
LOC: RADXRMAIN 12:45
PROVIDERS: ATTEND Nurse Practitioner Family
DX: S23.429A Unspecified sprain of sternum, initial encounter (principal)
CPT/HCPCS: 71120

== ENCOUNTER → 2022-06-17 | Outpatient (CLI) | payer MEDICARE ==
--- NOTE | 2022-06-17 13:02 | US ---
EXAMINATION TYPE: US scrotum with doppler. Grayscale and color Doppler Duplex imaging performed of t bogdan scrotum. DATE OF EXAM: 06/17/2022 COMPARISON: NONE CLINICAL HISTORY: N50.812 LEFT TESTICULAR PAIN. Left testicle pain that comes and goes. Hx of bilate ral inguinal hernias. Patient states his left teste is getting smaller. No injury. No swelling. EXAM MEASUREMENTS: TESTICLES: Right Testicle: 4.2 x 3.5 x 3.2 cm Left Testicle: 3.5 x 3.1 x 1.9 cm EPIDIDYMIS HEAD: Right Epididymis: 0.9 x 1.0 x 1.1 cm Left Epididymis: 0.9 x 1.1 x 1.1 cm Doppler performed to assess for testicular vascularity; good bilateral color flow and waveforms are s een. There is no evidence of testicular torsion. Presence of hydroceles: small right Presence of varicoceles: no Hypoechoic area seen in left epididymal body, nonvascular = 0.5 x 0.7 x 0.5 cm. There is adjacent hyp erechogenicity. IMPRESSION: 1. No evidence of testicular torsion. 2. Subcentimeter hypoechoic lesion with adjacent hypoechogenicity within the left epididymis. This is fairly represent a benign lesion such as a epididymal leiomyoma. Follow-up ultrasound in 3 months is recommended to assess for stability. 3. Small right hydrocele.
== END | disposition home or self-care (01) ==
LOC: RADUSWWP 12:13
PROVIDERS: ATTEND Surgery Plastic and Reconstructive Surgery
DX: N43.3 Hydrocele, unspecified (principal); N50.89 Other specified disorders of the male genital organs; N50.812 Left testicular pain
CPT/HCPCS: 76870; 93975

== ENCOUNTER → 2022-10-21 | Outpatient (CLI) | payer MEDICARE ==
--- NOTE | 2022-10-21 23:36 | US ---
EXAMINATION TYPE: US kidneys/renal and bladder DATE OF EXAM: 10/21/2022 COMPARISON: NONE CLINICAL INDICATION: Male, 77 years old with history of N18.9 CHRONIC KIDNEY DISEASE, UNSPECIFIED; CK D right kidney removed 2007 EXAM MEASUREMENTS: Right Kidney: Surgically absent Left Kidney: 10.8 x 4.6 x 4.2 cm Incidental finding isoechoic area liver 4.4 x 4.1 x 4.4 cm. Right Kidney: Surgically absent Left Kidney: No hydronephrosis or masses seen Bladder: anechoic Bilateral Jets seen: no IMPRESSION: 1. There is an isoechoic 4 cm area adjacent or within the right lobe liver. Additional workup with co ntrast CT abdomen is recommended. 2. No suspicious abnormality left kidney.
== END | disposition home or self-care (01) ==
LOC: RADUSWWP 08:50
PROVIDERS: ATTEND Internal Medicine
DX: N18.9 Chronic kidney disease, unspecified (principal); Z90.5 Acquired absence of kidney
CPT/HCPCS: 76770

== ENCOUNTER → 2022-10-23 | Outpatient (CLI) | payer MEDICARE ==
[2022-10-23 10:44] LABS: Appearance,Urine Clear (Clear); Bilirubin,Urine Negative (Negative); Blood,Urine Negative (Negative); Color,Urine Light Yellow; Glucose,Urine (UA) 4+ (Negative); Ketones,Urine Negative (Negative); Leukocyte Esterase,Urine Negative (Negative); Nitrite,Urine Negative (Negative); Protein,Urine Negative (Negative); Specific Gravity,Urine 1.022 (1.001-1.035); Urobilinogen,Urine <2.0 mg/dL (<2.0)
[2022-10-23 16:51] LABS: ALT 19 U/L (10-49); AST 24 U/L (14-35); Albumin 4.1 d/dL (3.8-4.9); Albumin/Globulin Ratio 2.73 Ratio (1.60-3.17); Alkaline Phosphatase 98 U/L (41-126); BUN/Creat Ratio 18.18 Ratio (12.00-20.00); Blood Urea Nitrogen 30.9 mg/dL (9.0-27.0); Calcium 9.3 mg/dL (8.7-10.3); Carbon Dioxide 25.3 mmol/L (21.6-31.8); Chloride 105 mmol/L (96-109); Globulin 1.5 d/dL (1.6-3.3); Glucose 225 mg/dL (70-110); Phosphorus 3.9 mg/dL (2.4-5.1); Potassium 5.4 mmol/L (3.5-5.5); Sodium 140 mmol/L (135-145); Total Bilirubin 1.1 mg/dL (0.3-1.2); Total Protein 5.6 d/dL (6.2-8.2)
[2022-10-23 23:43] LABS: HCT 47.7 % (39.6-50.0); MCH 30.1 pg (27.0-32.0); MCHC 31.4 d/dL (32.0-37.0); MCV 95.6 FL (80.0-97.0); Mean Platelet Volume 11.4 FL (9.5-12.2); NRBC Per 100 WBC 0 X 10*3/uL (0.00-0.01); Platelet Count 158 X 10*3/uL (140-440); RBC 4.99 X 10*6/uL (4.40-5.60); RDW 13.2 % (11.5-14.5); WBC 5.58 X 10*3/uL (4.50-10.00)
== END | disposition home or self-care (01) ==
LOC: LABWHC1 10:01
PROVIDERS: ATTEND Surgery Plastic and Reconstructive Surgery
DX: N18.9 Chronic kidney disease, unspecified (principal)
CPT/HCPCS: 36415; 80053; 81003; 84100; 85027

== ENCOUNTER → 2022-10-30 | Outpatient (CLI) | payer MEDICARE ==
[2022-10-30 16:30] LABS: African American GFR (CKD) 44 (>60 ml/min/1.73 sqM); Blood Urea Nitrogen 31 mg/dL (9-20); Non-African American GFR(CKD) 38 (>60 ml/min/1.73 sqM)
--- NOTE | 2022-11-01 14:00 | CT ---
EXAMINATION TYPE: CT abdomen w con DATE OF EXAM: 10/30/2022 COMPARISON: Correlation kidney ultrasound 10/21/2022, prior CT 08/19/2022r HISTORY: 77-year-old male case and 6.9, liver lesion, hx of RT nephrectomy TECHNIQUE: Contiguous axial scanning of the abdomen following administration of 100 ml Isovue 300 IV contrast. Delayed images through the kidneys and coronal/sagittal reconstructions performed. CT DLP: 912.60 mGycm Automated exposure control for dose reduction was used. FINDINGS: Heart upper limits of normal in size. Three-vessel coronary artery calcifications are present. No per icardial effusion. There is a annual oblong nodule posterior right lower lobe measuring 2.7 x 1.9 cm. Suspect a dilated unopacified branch extending peripherally posteriorly from this nodule, possibly postobstructive opac ification in the setting of an endobronchial nodule. Numerous new pulmonary nodules in the lower lungs measuring 8 mm and smaller. No pleural effusion. No focal liver lesion. Portal venous system is patent. Cholecystectomy clips. There is post right nephrectomy. However, there is a new heterogeneous enhancing mass measuring 5.0 x 3.7 cm in the region of the right adrenal gland. Unclear if this represents an new adrenal mass or l ocal recurrence of a previous right kidney neoplasm. Further evaluation recommended. Separate origins of the splenic artery and common hepatic artery from the aorta. The left kidney, left adrenal gland, spleen, and atrophic pancreas show no gross abnormal value. There appears to be changes of prior Baldev fundoplication. Patient appears to be status post right hemicolectomy with ileocolonic anastomosis at the level of th e proximal third transverse colon. No mesenteric or retroperitoneal adenopathy seen. No dilated small bowel, free fluid, or free air. Pelvis not imaged. Bones: Moderate to advanced degenerative disc disease lower thoracic spine. Mild anterior wedge defor mity L1 vertebral body is new from 2010 but still age-indeterminate, suspected chronic given the lack of any significant surrounding soft tissue swelling. Heterogeneous marrow density may be on the basi s of osteopenia porosis. IMPRESSION: 1. STATUS POST RIGHT NEPHRECTOMY. THERE IS A NEW HETEROGENEOUS ENHANCING MASS MEASURING 5.0 X 3.7 CM CORRESPONDING TO THE ULTRASOUND FINDING. THIS IS LOCATED IN THE REGION OF THE RIGHT ADRENAL GLAND. UN CLEAR IF THIS REPRESENTS LOCAL RECURRENCE OF THE PREVIOUS RIGHT KIDNEY NEOPLASM OR A NEW RIGHT ADRENA L NEOPLASM. FURTHER EVALUATION RECOMMENDED. 2. THE FORMER IS FAVORED GIVEN NUMEROUS NEW PULMONARY NODULES IN THE LOWER LUNGS. THE LARGEST MAY BE ENDOBRONCHIAL MEASURING 2.7 X 1.9 CM AT THE RIGHT BASE LIKELY WITH SOME POSTOBSTRUCTIVE ENDOBRONCHIAL OPACIFICATION. 3. HETEROGENEOUS MARROW DENSITY LIKELY DUE TO OSTEOPOROSIS. MILD ANTERIOR WEDGE DEFORMITY OF L1 IS NE W FROM 2010 BUT STILL SUSPECTED CHRONIC GIVEN THE LACK OF SURROUNDING SOFT TISSUE SWELLING. CLINICALL Y CORRELATE. 4. CORRELATE TO THE REASON FOR THE PATIENT'S PREVIOUS RIGHT HEMICOLECTOMY.
== END | disposition home or self-care (01) ==
LOC: RADCTMAIN 15:31
PROVIDERS: ATTEND Internal Medicine
DX: K76.9 Liver disease, unspecified (principal); M48.56XA Collapsed vertebra, not elsewhere classified, lumbar region, initial encounter for fracture; Z90.5 Acquired absence of kidney
CPT/HCPCS: 82565; 84520; 74160; 36415; Q9967

== ENCOUNTER → 2023-02-10 | Outpatient (CLI) | payer MEDICARE ==
--- NOTE | 2023-02-10 12:12 | XR ---
EXAMINATION TYPE: XR sacrum coccyx DATE OF EXAM: 02/10/2023 COMPARISON: NONE HISTORY: Pain Three views are submitted. Sacrum is intact. SI joints are symmetric. Coccyx appears to be intact. Visualized pelvic structures intact. Diffuse osteopenia with bilateral hip arthropathy. A grade 1 anterolisthesis of L5 relative to S1. Multilevel degenerative disc disease and facet arthropathy. Low er margin the coccyx not well seen which could be secondary to osteopenia. Spina bifida occulta of th e sacrum. Sclerosis involving the right SI joint. Surgical clips in the right abdomen. IMPRESSION: 1. Diffuse osteopenia. No definite acute abnormality, given the degree of osteopenia, if symptoms per sist recommend CT scan. 2. Multilevel degenerative disc disease and facet arthropathy lower lumbar spine with grade 1 anterol isthesis L5-S1.
== END | disposition home or self-care (01) ==
LOC: RADXRYALE 11:00
PROVIDERS: ATTEND Internal Medicine
DX: M53.3 Sacrococcygeal disorders, not elsewhere classified (principal); M85.89 Other specified disorders of bone density and structure, multiple sites; M51.36 Other intervertebral disc degeneration, lumbar region; M47.816 Spondylosis without myelopathy or radiculopathy, lumbar region; M43.17 Spondylolisthesis, lumbosacral region
CPT/HCPCS: 72220

== ENCOUNTER → 2023-04-23 | Outpatient (CLI) | payer MEDICARE ==
--- NOTE | 2023-04-24 17:49 | MR ---
EXAMINATION TYPE: MR brain wo con DATE OF EXAM: 04/23/2023 3:52 PM CLINICAL INDICATION:Male, 77 years old with history of C64.9 MALIGNANT NEOPLASM OF UNSP KIDNEY, EXCEP T RE, Renal cell cancer. COMPARISON: None. TECHNIQUE: Multi planar, multi sequence imaging was performed through the brain including: T1, T2, In version recovery, Diffusion weighted imaging, and gradient echo imaging. No gadolinium was given. FINDINGS: Mild cerebral atrophy with proportional dilation of ventricular system. Scattered foci of high T2 s ignal intensity are seen within the periventricular white matter. Midline structures show no abnormal ity. Diffusion-weighted imaging shows no evidence of restricted diffusion. The susceptibility weighte d images do not reveal any evidence for micro-hemorrhage. The bone marrow signal is within normal limits. Paranasal sinuses and mastoid air cells: No significant paranasal sinus disease. Visualized orbits: Orbital contents are intact. IMPRESSION: 1. Limited Evaluation without IV contrast. No evidence for mass. 2. No evidence of intracranial mass or acute/subacute infarct. 3. Nonspecific white matter changes, likely secondary to small vessel ischemic disease.
== END | disposition home or self-care (01) ==
LOC: RADMRIMAIN 14:14
PROVIDERS: ATTEND Internal Medicine
DX: C64.9 Malignant neoplasm of unspecified kidney, except renal pelvis (principal)
CPT/HCPCS: 70551

== ENCOUNTER → 2023-04-27 | Outpatient (CLI) | payer MEDICARE ==
[2023-04-27 10:37] LABS: African American GFR (CKD) 54 (>60 ml/min/1.73 sqM); Blood Urea Nitrogen 23 mg/dL (9-20); Non-African American GFR(CKD) 47 (>60 ml/min/1.73 sqM)
--- NOTE | 2023-04-27 16:23 | CT ---
EXAMINATION TYPE: CT ChestAbdPelvis w con CT DLP: 2045 mGycm, Automated exposure control for dose reduction was used. DATE OF EXAM: 04/27/2023 11:43 AM COMPARISON: 10/30/2022. CLINICAL INDICATION:Male, 77 years old with history of C64.9 RENAL CELL CA; [facility], f/u renal ca Technique: CT ChestAbdPelvis w con; Multiple axial images were obtained. Two-dimensional coronal and sagittal reconstructions were obtained. Contrast used:80cc mL of Isovue 300 with IV Contrast, Oral contrast used: with Oral Contrast Findings: CHEST: LUNGS/ PLEURA: Moderate right pleural effusion with associated atelectasis. Post surgical changes to the lung. AIRWAY: Patent and unremarkable. HEART: Size within normal limits. MEDIASTINUM: No gross evidence of adenopathy. VASCULATURE: No aortic aneurysm. MUSCULOSKELETAL: No acute osseous abnormalities. SOFT TISSUES/LYMPH NODES: Unremarkable. LOWER NECK: No significant findings. ABDOMEN: ABDOMEN LIVER: Unremarkable GALLBLADDER AND BILE DUCTS: Unremarkable. PANCREAS: Unremarkable. SPLEEN: Unremarkable. ADRENAL GLANDS: Unremarkable. KIDNEYS AND URETERS: The right kidney is surgically absent there is a heterogenous enhancing mass in the adrenal gland measuring at least 50 x 40 mm which may been 50 x 37 mm on prior. PELVIS BLADDER: Unremarkable REPRODUCTIVE: Prostate is enlarged in size measuring 7.1 cm in transverse dimension. ABDOMEN & PELVIS STOMACH AND BOWEL: No evidence of bowel obstruction. Postsurgical changes to the colon with surgical clips present. A majority of the colon is on the left side of the abdomen and the small bowel is on t he right side of the abdomen. PERITONEUM: No evidence of pneumoperitoneum or free fluid. VASCULATURE: No evidence of aortic aneurysm. MUSCULOSKELETAL: No acute osseous abnormalities LYMPH NODES: No gross evidence for lymphadenopathy. SOFT TISSUE/ABDOMINAL WALL: Unremarkable IMPRESSION: 1. Right nephrectomy changes with heterogenous enhancing right adrenal mass which may be fractionall y larger on today's exam. Findings are new from 2013 and likely represent metastatic disease. 2. Postsurgical changes to the right lung with moderate right pleural effusion, new from prior. 3. Prostatomegaly correlate with serum PSA. Follow up recommendations for incidental pulmonary nodules are per [employer] or [employer].
== END | disposition home or self-care (01) ==
LOC: RADCTMAIN 09:45
PROVIDERS: ATTEND Internal Medicine
DX: J90 Pleural effusion, not elsewhere classified (principal); C64.9 Malignant neoplasm of unspecified kidney, except renal pelvis; E27.8 Other specified disorders of adrenal gland; N40.0 Benign prostatic hyperplasia without lower urinary tract symptoms; E11.22 Type 2 diabetes mellitus with diabetic chronic kidney disease; N18.9 Chronic kidney disease, unspecified; Z98.890 Other specified postprocedural states; Z90.5 Acquired absence of kidney
CPT/HCPCS: 82565; 84520; 71260; 74177; 36415; Q9967

== ENCOUNTER → 2023-04-29 | Outpatient (CLI) | payer MEDICARE ==
[2023-04-29 16:16] LABS: Appearance,Urine Clear (Clear); Bilirubin,Urine Negative (Negative); Blood,Urine Negative (Negative); Color,Urine Yellow (Yellow); Ketones,Urine Negative (Negative); Nitrite,Urine Negative (Negative); Specific Gravity,Urine 1.026 (1.001-1.030); Urobilinogen,Urine 0.2 E.U./DL
[2023-04-29 18:40] LABS: Basophils # (A) 0.06 X 10*3/uL (0.00-0.10); Eosinophils # (A) 0.37 X 10*3/uL (0.04-0.35); HGB 13.6 g/dL (13.0-17.0); Lymphocytes # (A) 1.05 X 10*3/uL (0.90-5.00); MCH 30.6 pg (27.0-32.0); MCHC 31.6 g/dL (32.0-37.0); MCV 96.6 FL (80.0-97.0); Mean Platelet Volume 9.7 FL (9.5-12.2); Monocytes # (A) 0.78 X 10*3/uL (0.20-1.00); Monocytes % (A) 12.6 %; NRBC Per 100 WBC 0 X 10*3/uL (0.00-0.01); Neutrophils # (A) 3.88 X 10*3/uL (1.80-7.70); Neutrophils % (A) 62.9 %; Platelet Count 175 X 10*3/uL (140-440); RBC 4.45 X 10*6/uL (4.40-5.60); RDW 13.5 % (11.5-14.5); WBC 6.17 X 10*3/uL (4.50-10.00)
[2023-04-29 19:01] LABS: Microalbumin Creatinine Ratio <21 mg/g Cr (0-30); Urine Creatinine 56.8 mg/dL (39.0-259.0)
[2023-04-29 22:34] LABS: % Iron Saturation 20.81 (15.00-50.00); Albumin 3.8 g/dL (3.8-4.9); BUN/Creat Ratio 15.27 Ratio (12.00-20.00); Blood Urea Nitrogen 22.9 mg/dL (9.0-27.0); Calcium 9.3 mg/dL (8.7-10.3); Carbon Dioxide 26.8 mmol/L (21.6-31.8); Chloride 104 mmol/L (96-109); Ferritin 76.3 ng/mL (22.0-322.0); Glucose 196 mg/dL (70-110); Iron 67 UG/DL (65-175); Magnesium 1.8 mg/dL (1.5-2.4); Phosphorus 3.7 mg/dL (2.4-5.1); Potassium 4.9 mmol/L (3.5-5.5); Sodium 141 mmol/L (135-145); Total Iron Binding Capacity 322 UG/DL (228-460); Uric Acid 6.2 mg/dL (3.7-8.7)
== END | disposition home or self-care (01) ==
LOC: LABWHC1 11:27
PROVIDERS: ATTEND Internal Medicine Nephrology
DX: E55.9 Vitamin D deficiency, unspecified (principal); N25.81 Secondary hyperparathyroidism of renal origin; M10.9 Gout, unspecified; N39.0 Urinary tract infection, site not specified; N18.32 Chronic kidney disease, stage 3b; D63.1 Anemia in chronic kidney disease; R80.9 Proteinuria, unspecified
CPT/HCPCS: 36415; 80048; 81003; 82040; 82043; 82306; 82570; 82728; 83540; 83550; 83735; 83970; 84100; 84550; 85025

== ENCOUNTER → 2023-08-09 | Outpatient (CLI) | payer MEDICARE ==
[2023-08-09 11:31] LABS: African American GFR (CKD) 52 (>60 ml/min/1.73 sqM); Blood Urea Nitrogen 22 mg/dL (9-20); Non-African American GFR(CKD) 45 (>60 ml/min/1.73 sqM)
--- NOTE | 2023-08-12 14:03 | CT ---
EXAMINATION TYPE: CT Chest Abd Pelvis w con CT DLP: 1199.2 mGycm, Automated exposure control for dose reduction was used. DATE OF EXAM: 08/09/2023 12:52 PM COMPARISON: 04/27/2023 CLINICAL INDICATION:Male, 78 years old with history of C64.9 RENAL CELL CANCER; [facility], f/u renal and fior ng ca Technique: CT Chest Abd Pelvis w con; Multiple axial images were obtained. Two-dimensional coronal an d sagittal reconstructions were obtained. Contrast used:80 mL of Isovue 300 with IV Contrast, Oral contrast used: with Oral Contrast Findings: CHEST: LUNGS/ PLEURA: Post surgical changes with surgical clips in the right hilum Moderate sized right pleu ral effusions. Associated atelectasis with these effusions. Lungs are otherwise clear. AIRWAY: Patent and unremarkable. HEART: Size within normal limits. MEDIASTINUM: No gross evidence of adenopathy. VASCULATURE: No aortic aneurysm. MUSCULOSKELETAL: No acute osseous abnormalities. SOFT TISSUES/LYMPH NODES: Unremarkable. LOWER NECK: No significant findings. ABDOMEN: ABDOMEN LIVER: Unremarkable GALLBLADDER AND BILE DUCTS: Unremarkable. PANCREAS: Unremarkable. SPLEEN: Unremarkable. ADRENAL GLANDS: Right adrenal 4 cm x 5 cm nodule with enhancing rim has stable size and appearance co mpared to the prior exam.. KIDNEYS AND URETERS: Nephrectomy clips in the right renal fossa. No evidence of hydronephrosis or ruth al calculus. The ureters are unremarkable. PELVIS BLADDER: Unremarkable REPRODUCTIVE: Unremarkable. ABDOMEN & PELVIS STOMACH AND BOWEL: Stomach and duodenum are unremarkable. No evidence of bowel obstruction. PERITONEUM: No evidence of pneumoperitoneum or free fluid. VASCULATURE: No evidence of aortic aneurysm. MUSCULOSKELETAL: No acute osseous abnormalities LYMPH NODES: No gross evidence for lymphadenopathy. SOFT TISSUE/ABDOMINAL WALL: Unremarkable IMPRESSION: Right nephrectomy with enhancing right adrenal mass, question necrotic center. Stable in size and vishnu earance from prior April 2023 exam but reportedly new from 2013. Likely metastatic disease. Post surgical appearance of right lung. Persistent moderate right pleural effusion. Enlarged 7 cm prostate gland Follow up recommendations for incidental pulmonary nodules are per [employer] or [employer].
== END | disposition home or self-care (01) ==
LOC: RADCTMAIN 10:57
PROVIDERS: ATTEND Internal Medicine
DX: N40.0 Benign prostatic hyperplasia without lower urinary tract symptoms (principal); C64.9 Malignant neoplasm of unspecified kidney, except renal pelvis; E11.22 Type 2 diabetes mellitus with diabetic chronic kidney disease; N18.9 Chronic kidney disease, unspecified; E27.8 Other specified disorders of adrenal gland; J90 Pleural effusion, not elsewhere classified; Z90.5 Acquired absence of kidney; Z71.3 Dietary counseling and surveillance; Z98.890 Other specified postprocedural states
CPT/HCPCS: 82565; 84520; 71260; 74177; 36415; Q9967

== ENCOUNTER → 2023-11-03 | Outpatient (CLI) | payer MEDICARE ==
--- NOTE | 2023-11-04 11:04 | US ---
EXAMINATION TYPE: US scrotum with doppler. Grayscale and color Doppler Duplex imaging performed of t bogdan scrotum. 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 There is no evidence of testicular torsion. Presence of hydroceles: small amount of fluid seen on right seen. Presence of varicoceles: no IMPRESSION: 1. No evidence for intratesticular mass. 2. Appropriate arterial and spectral venous waveforms to the testes. 3. Small right hydrocele.
== END | disposition home or self-care (01) ==
LOC: RADUSWWP 13:59
PROVIDERS: ATTEND Surgery Plastic and Reconstructive Surgery
DX: N50.89 Other specified disorders of the male genital organs
CPT/HCPCS: 76870; 93975

== ENCOUNTER → 2023-11-16 | Outpatient (CLI) | payer MEDICARE ==
--- NOTE | 2023-11-18 12:09 | CT ---
EXAMINATION TYPE: CT ChestAbdPelvis wo con DATE OF EXAM: 11/16/2023 INDICATION: FOLLOW UP FOR RENAL CANCER. PRIORS IN PACS. NO CONTRAST INJECTION COMPARISON: 08/09/2023 CT DLP: 1209 mGycm CONTRAST: Performed without Oral Contrast and no intravenous contrast TECHNIQUE: Axial images at 5 mm thick sections. Reconstructed images in the coronal plane. Delayed images through the kidneys. FINDINGS: CT CHEST: Portion of the thyroid visualized is normal. There is a small right pleural effusion. Azygos lobe is present, a normal variant. Postsurgical rice es are within the right lower lobe. No enlarged mediastinal or hilar adenopathy is evident. The ascending aorta diameter at the level of the main pulmonary artery is 3.9 cm. The main pulmonary artery diameter at the bifurcation is 2.9 cm. Moderate coronary artery calcification is present. CT ABDOMEN: Liver: Normal Spleen: Normal Pancreas: Normal Adrenal glands: Right adrenal gland is enlarged measuring 2.2 cm with a somewhat hypodense center. Th is is diminished in size from comparison. The cortex is diminished in size over the interval. Previou s measurement 3.6 cm. Left adrenal gland is normal. Gallbladder: Surgically Absent Kidneys: There is a right nephrectomy. No residual mass within the renal bed is evident Left kidney:. No hydronephrosis is present. No cysts are present. No mass on the left kidney is id entified. Aorta: Vascular calcification is within the aorta. Inferior vena cava: Normal. CT PELVIS: Loops of bowel within the abdomen and pelvis are normal. There are loops of bowel which are incom pletely distended or lack oral contrast limiting their evaluation. Appendix: Normal as visualized. Urinary bladder: Decompressed but unremarkable. Genitourinary structures: Prostate is very prominent. Osseous structures: No suspicious lytic or sclerotic lesions. No expansile lesions evident. Facet deg enerative changes present. IMPRESSION: 1. No recurrent renal bed masses. 2. Previously enlarged right adrenal gland has diminished in size over the interval. This remains pro minent. Involuting metastatic lesion remains within the differential. 3. Very prominent prostate. 4. Small right pleural effusion similar to comparison
== END | disposition home or self-care (01) ==
LOC: RADCTMAIN 16:09
PROVIDERS: ATTEND Internal Medicine
DX: C64.9 Malignant neoplasm of unspecified kidney, except renal pelvis (principal); E11.22 Type 2 diabetes mellitus with diabetic chronic kidney disease; N18.9 Chronic kidney disease, unspecified; E27.8 Other specified disorders of adrenal gland; J90 Pleural effusion, not elsewhere classified; Z71.3 Dietary counseling and surveillance
CPT/HCPCS: 71250; 74176

== ENCOUNTER → 2024-01-04 | Outpatient (CLI) | payer MEDICARE ==
[2024-01-04 15:51] LABS: % Iron Saturation 30.03 (15.00-50.00); BUN/Creat Ratio 15.38 Ratio (12.00-20.00); Carbon Dioxide 25.1 mmol/L (21.6-31.8); Chloride 109 mmol/L (96-109); Ferritin 68.1 ng/mL (22.0-322.0); Glucose 117 mg/dL (70-110); Iron 88 UG/DL (65-175); Magnesium 1.8 mg/dL (1.5-2.4); Phosphorus 3.1 mg/dL (2.4-5.1); Potassium 5.8 mmol/L (3.5-5.5); Sodium 143 mmol/L (135-145); Total Iron Binding Capacity 293 UG/DL (228-460); Uric Acid 6.5 mg/dL (3.7-8.7)
[2024-01-04 16:07] LABS: Appearance,Urine Clear (Clear); Bilirubin,Urine Negative (Negative); Blood,Urine Negative (Negative); Color,Urine Yellow (Yellow); Ketones,Urine Negative (Negative); Nitrite,Urine Negative (Negative); PH, Urine 5.5; Specific Gravity,Urine 1.022 (1.001-1.030)
[2024-01-04 16:08] LABS: Basophils # (A) 0.05 X 10*3/uL (0.00-0.10); Eosinophils # (A) 0.24 X 10*3/uL (0.04-0.35); Eosinophils % (A) 4.7 %; HCT 44.4 % (39.6-50.0); HGB 14.4 g/dL (13.0-17.0); Lymphocytes # (A) 0.82 X 10*3/uL (0.90-5.00); Lymphocytes % (A) 16.1 %; MCH 31.6 pg (27.0-32.0); MCHC 32.4 g/dL (32.0-37.0); MCV 97.6 FL (80.0-97.0); Mean Platelet Volume 9.8 FL (9.5-12.2); Monocytes # (A) 0.63 X 10*3/uL (0.20-1.00); Monocytes % (A) 12.4 %; NRBC Per 100 WBC 0 X 10*3/uL (0.00-0.01); Neutrophils # (A) 3.32 X 10*3/uL (1.80-7.70); Neutrophils % (A) 65.4 %; Platelet Count 147 X 10*3/uL (140-440); RBC 4.55 X 10*6/uL (4.40-5.60); RDW 13.6 % (11.5-14.5); WBC 5.08 X 10*3/uL (4.50-10.00)
[2024-01-04 22:41] LABS: Microalbumin Creatinine Ratio <15 mg/g Cr (0-30); Urine Creatinine 82.7 mg/dL (39.0-259.0)
== END | disposition home or self-care (01) ==
LOC: LABWHC1 11:32
PROVIDERS: ATTEND Internal Medicine Nephrology
CPT/HCPCS: 36415; 80048; 81003; 82043; 82306; 82570; 82728; 83540; 83550; 83735; 83970; 84100; 84550; 85025

== ENCOUNTER → 2024-03-14 | Outpatient (CLI) | payer MEDICARE ==
--- NOTE | 2024-03-14 13:57 | CT ---
EXAMINATION TYPE: CT ChestAbdPelvis wo con DATE OF EXAM: 03/14/2024 COMPARISON: 11/16/2023 CLINICAL INDICATION: Male, 78 years old with history of C64.9 MALIGNANT NEOPLASM OF UNSP KIDNEY, EXCE PT RE; [facility], f/u renal ca TECHNIQUE: CT scan of the thorax, abdomen and pelvis is performed without IV contrast. CT DLP: 639.[address] CTDI: mGy Automated exposure control for dose reduction was used. FINDINGS: CT chest: There is no suspicious lung mass or nodule. There are a few scattered stable micronodules. There is no abnormal airspace/consolidative density or abnormal interstitial density. There is a persistent moderate right pleural effusion. The great vessels and chest are normal there is no mediastinal, hilar or axillary adenopathy. No focal osseous lesions are seen. CT abdomen and pelvis: There is surgical absence of the gallbladder. There is a stable 2.2 cm right adrenal nodule. There is no organomegaly involving liver, pancreas or spleen. There is no biliary ductal dilatation. There is surgical absence of the right kidney. The left kidney is unremarkable without calcification or hydronephrosis. There is no retroperitoneal adenopathy or hemorrhage in the caliber of the abdomin al aorta is normal. The bowel loops are normal in caliber and there is no dilatation or obstruction. No inflammatory pierson ges identified in the bowel wall and mesentery. There are anastomotic sutures in the transverse colon . There is no free intracranial air or fluid. There is no pelvic mass or adenopathy. There is no free fluid within the pelvis. There is stable marked prostatic hypertrophy. There is a stable moderate compression fracture of L1. There are no focal lytic osseous lesions. IMPRESSION: 1. Stable moderate right pleural effusion. 2. Stable 2.3 cm right adrenal nodule. 3. Status post right nephrectomy and transverse colon anastomotic sutures. 4. Stable marked prostatic hypertrophy. 5. Stable moderate compression fracture of L1. 6. No evidence of recurrent or metastatic disease in the abdomen or pelvis [facility], , 03/14/2024 1:55 PM
== END | disposition home or self-care (01) ==
LOC: RADCTMAIN 12:50
PROVIDERS: ATTEND Internal Medicine
DX: C64.9 Malignant neoplasm of unspecified kidney, except renal pelvis (principal); E11.9 Type 2 diabetes mellitus without complications; N18.9 Chronic kidney disease, unspecified; Z71.3 Dietary counseling and surveillance; J90 Pleural effusion, not elsewhere classified; Z90.5 Acquired absence of kidney; N40.0 Benign prostatic hyperplasia without lower urinary tract symptoms; M48.56XA Collapsed vertebra, not elsewhere classified, lumbar region, initial encounter for fracture
CPT/HCPCS: 71250; 74176

== ENCOUNTER 2024-06-30 08:24 | Day surgery (SDC) | payer MEDICARE ==
[2024-06-27 12:28] VITALS: BMI 28.3
--- NOTE | 2024-06-30 07:37 | P.GSHP ---
History of Present Illness H&P Date: 06/30/24 CHIEF COMPLAINT: History of intra-abdominal adhesions HISTORY OF PRESENT ILLNESS: The patient is a 78-year-old male increasing left lower quadrant abdominal pain. He has pre-existing history of multiple abdominal surgeries including right nephrectomy, right colectomy, bilateral gluteal hernia pair with mesh. He seen multiple bodies regarding his left lower abdominal pain. He currently being treated for adrenal mass. Cardiac risk assessment was obtained. Surgical options were described which patient elected for lysis of adhesions for his abdominal pain. PAST MEDICAL HISTORY: Please see list. PAST SURGICAL HISTORY: Please see list. MEDICATIONS: Please see list. ALLERGIES: Please see list. SOCIAL HISTORY: No illicit drug use FAMILY HISTORY: No reports of Crohn disease or ulcerative colitis. REVIEW OF ORGAN SYSTEMS: CONSTITUTIONAL: Denies any fever or chills. HEENT: Wears glasses. No difficulty swallowing. LYMPHATIC: The patient denies any lumps and bumps around the neck. ENDOCRINE: Has diabetes type 2. RESPIRATORY: Denies pneumonia. Denies current troubles with breathing or dyspnea on exertion. CARDIOVASCULAR: Denies current chest pain, palpitations, or recent heart attacks. GASTROINTESTINAL: Denies current heart burn, constipation or bright red blood per rectum. GENITOURINARY: Denies current blood in urine or increased urinary frequency. MUSCULOSKELETAL: Has back pain, stiffness, joint arthritis. NEUROLOGIC: Denies any numbness or tingling along the distal extremities. No seizure disorders or headaches. PSYCHIATRIC: Denies current depression or suidical ideation. HEMATOLOGIC: Denies current abnormal bleeding or bruising. PHYSICAL EXAM: GENERAL: Well-developed pleasant male in no acute distress. HEENT: No scleral icterus. Extraocular movements grossly intact. Moist buccal mucosa. NECK: Supple without lymphadenopathy. CHEST: Unlabored respirations. Equal bilateral excursions. CARDIOVASCULAR: Regular rate and rhythm. Distal 2+ pulses. ABDOMEN: Soft, nondistended. Left lower quadrant abdominal pain MUSCULOSKELETAL: No clubbing, cyanosis, or edema. SKIN: Well perfused. PSYCH: Alert and oriented to self, place and time ASSESSMENT: 1. Left lower quadrant abdominal pain abdominal pain. 2. History of multiple abdominal surgeries. 3. Intra-abdominal adhesions. PLAN: 1. Robotic lysis of adhesions were described in detail including risk of injury to the intestine, need for further surgery, and open technique. 2. DVT prophylaxis. 3. Antibiotic prophylaxis. 4. He is elevated risk of complications due to pre-existing comorbidities Past Medical History Past Medical History: Atrial Fibrillation, Cancer, Diabetes Mellitus, GERD/Reflux, Hypertension, Memory Impairment, Prostate Disorder, Sleep Apnea/CPAP/BIPAP, Thyroid Disorder Additional Past Medical History / Comment(s): Atrial fibrillation per EKG from 2019 (EMR) and EKG from [facility] from November 2023-pt denied hx of [id number] he didn't know why he was taking Eliquis. Right KIDNEY CA- no chemo no radiation. Enlarged Prostate. Hx. of Hiatal Hernia HX COLON POLYPS. Hx. of hypertension. No CPAP/BIPAP in use. Hx skin cancer. Occasional short term mempory issues. Started Cancer tx May 2023 -immunotherapy infusion 1 X a month- currently being tx. History of Any Multi-Drug Resistant Organisms: None Reported Past Surgical History: Bowel Resection, Cholecystectomy, Hernia Repair, Joint Replacement, Orthopedic Surgery, Tonsillectomy Additional Past Surgical History / Comment(s): RT NEPHRECTOMY. RT KNEE ARTHROSCOPY. HIATAL , RT ING Hernia Repair X2 , total rt knee. removal of skin cancer to back. Surgery for sleep apnea. Deviated septum repair. Surgery to remove portion of bottom of rt lung R/T cancer. Wedge resection to lt lungo R/T cancer. Part of colon removed. Past Anesthesia/Blood Transfusion Reactions: No Reported Reaction Additional Past Anesthesia/Blood Transfusion Reaction / Comment(s): "I woke up during sugery one time." Smoking Status: Never smoker - Past Family History Brother(s) Family Medical History: Cancer Additional Family Medical History / Comment(s): "went once a month to clean his blood" Mother History Unknown: Yes Family Medical History: Cancer Additional Family Medical History / Comment(s): Leukemia Father Family Medical History: Diabetes Mellitus Sister(s) Family Medical History: No Reported History Daughter(s) Family Medical History: No Reported History Son(s) Family Medical History: No Reported History Medications and Allergies Home Medications Medication Instructions Recorded Confirmed Type Levothyroxine Sodium [Synthroid] 137 mcg PO QAM 09/20/13 06/27/24 History Doxazosin Mesylate [Cardura] 8 mg PO HS 05/10/15 06/27/24 History Insulin Glargine (Lantus) [Lantus 5 unit SQ PC-[id number] 05/02/18 06/27/24 History Vial] carvediloL [Coreg*] 25 mg PO BID-W/MEALS #60 tab 05/18/18 06/27/24 Rx Apixaban [Eliquis] 5 mg PO BID 06/27/24 06/27/24 History Cabozantinib S-Malate [Cabometyx] 20 mg PO Q48H 06/27/24 06/27/24 History Cholecalciferol (Vitamin D3) 50 mcg PO QAM 06/27/24 06/27/24 History [Vitamin D3 (50 Mcg = 2000 Iu)] Donepezil [Aricept] 10 mg PO HS 06/27/24 06/27/24 History Empagliflozin [Jardiance] 10 mg PO QAM 06/27/24 06/27/24 History Tamsulosin HCl [Flomax] 0.4 mg PO BID 06/27/24 06/27/24 History Zantac(Unknown Dose) 10 mg PO QAM 06/27/24 06/27/24 History Allergies Allergy/AdvReac Type Severity Reaction Status Date / Time Penicillins Allergy Rash/Hives Verified 06/27/24 11:46
[~2024-06-30 08:24] MED LIST changes: +HYDROmorphone 0.5 MG/0.5 ML SYRINGE IVP PRN; -LACTATED RINGERS 1,000 ML IV SCH; +Pre Op ABX Message 1 EACH MISC MISCELLANE ONE
[2024-06-30] MEDS: MELOXICAM 7.5 MG TAB PO PRN (10:05)
[2024-06-30] MEDS: ACETAMINOPHEN TAB 500 MG TAB PO PRN (10:05)
[2024-06-30] MEDS: DEXAMETHASONE SOD PHOSPHATE 4 MG/ML 1 ML VIAL IVP STA (10:06)
[2024-06-30] MEDS: ONDANSETRON 4 MG/2 ML VIAL IVP PRN (10:06)
[2024-06-30 10:09] VITALS: RESP 16
[2024-06-30 10:16] LABS: Glucose,Whole Blood 73 mg/dL (70-110)
[2024-06-30 10:53] LABS: Basophils # (A) 0.03 10*3/uL (0.00-0.10); Basophils % (A) 0.8 %; Eosinophils % (A) 5.2 %; HCT 44.3 % (39.6-50.0); HGB 15.1 g/dL (13.0-17.0); Lymphocytes # (A) 0.61 10*3/uL (0.90-5.00); MCH 32.2 pg (27.0-32.0); MCHC 34.1 g/dL (32.0-37.0); MCV 94.5 fL (80.0-97.0); Mean Platelet Volume 9.3 fL (9.5-12.2); Monocytes # (A) 0.55 10*3/uL (0.20-1.00); Monocytes % (A) 14.4 %; Neutrophils # (A) 2.42 10*3/uL (1.80-7.70); Neutrophils % (A) 63.3 %; Platelet Count 118 10*3/uL (140-440); RBC 4.69 10*6/uL (4.40-5.60); RDW 13.7 % (11.5-14.5); WBC 3.82 10*3/uL (4.50-10.00)
[2024-06-30 11:00] LABS: ALT 21 U/L (4-49); AST 29 U/L (17-59); African American GFR (CKD) 48 (>60 ml/min/1.73 sqM); Albumin 3.9 g/dL (3.5-5.0); Alkaline Phosphatase 77 U/L (38-126); Anion Gap 9 mmol/L; Blood Urea Nitrogen 24 mg/dL (9-20); Calcium 9.4 mg/dL (8.4-10.2); Carbon Dioxide 23 mmol/L (22-30); Chloride 109 mmol/L (98-107); Glucose 75 mg/dL (74-99); Non-African American GFR(CKD) 42 (>60 ml/min/1.73 sqM); Potassium 4.5 mmol/L (3.5-5.1); Sodium 141 mmol/L (137-145); Total Bilirubin 1.7 mg/dL (0.2-1.3); Total Protein 6.2 g/dL (6.3-8.2)
[2024-06-30] MEDS: IV FLUID CONTINUATION 1,000 ML IV ONE (11:02)
[2024-06-30] MEDS: fentaNYL (PF) 50 MCG/ML 2 ML AMP IVP PRN (12:24)
[2024-06-30] MEDS: LIDOCAINE 1%-EPI 1:100,000 20 ML VIAL SQ ONE ×2 (12:24→13:25)
[2024-06-30] MEDS: MIDAZOLAM 2 MG/2 ML VIAL IV PRN (12:25)
[2024-06-30] MEDS: HEPARIN SODIUM,PORCINE 5,000 UNIT/ML 1 ML VIAL SQ PRN (12:35)
[2024-06-30] MEDS ORDERED: fentaNYL (PF) 50 MCG/ML 2 ML AMP ONE (12:35)
[2024-06-30] MEDS ORDERED: PROPOFOL 10 MG/ML 20 ML VIAL IV ONE (12:35)
[2024-06-30] MEDS ORDERED: NEOSTIGMINE 1 MG/ML 10 ML VIAL ONE (12:35)
[2024-06-30] MEDS ORDERED: DEXAMETHASONE SOD PHOSPHATE 4 MG/ML 1 ML VIAL ONE (12:35)
[2024-06-30] MEDS ORDERED: GLYCOPYRROLATE 0.2 MG/ML 2 ML VIAL ONE (12:35)
[2024-06-30] MEDS ORDERED: SUCCINYLCHOLINE CHLORIDE 200 MG/10 ML VIAL IV ONE (12:35)
[2024-06-30] MEDS ORDERED: SODIUM CHLORIDE 0.9% (PF) 10 ML VIAL ONE (12:35)
[2024-06-30] MEDS ORDERED: ROCURONIUM 10 MG/ML (5 ML VIAL) IV ONE (12:35)
[2024-06-30] MEDS ORDERED: ROPIVACAINE 5 MG/ML 30 ML VIAL ONE (12:35)
[2024-06-30] MEDS ORDERED: LIDOCAINE 1% INJ 10MG/ML (20 ML MDV) ONE (12:35)
[2024-06-30] MEDS: LACTATED RINGERS 1,000 ML IV SCH (12:37)
[2024-06-30] MEDS: SODIUM CHLORIDE 0.9% 50 ML with ceFAZolin 2,000 MG IV ONE ×2 (12:38)
--- NOTE | 2024-06-30 13:22 | P.ANPRN ---
Procedure Note - Anesthesia - Nerve Block Performed Bilateral Erector Spinae Single Time Out Performed: Yes (1224) Date of Procedure: 06/30/24 Procedure Start Time: Procedure Stop Time: Location of Patient: PreOp Indication: Acute Post-Operative Pain, Requested by Surgeon Specifically requested for management of pain by : Suze Herbert Sedation Type: Sedate with meaningful contact maintained Preparation: Sterile Prep Position: Sitting Catheter: None Needle Types: Pajunk Needle Gauge: 21 Ultrasound used to visualize needle placement: Yes Ultrasound used to observe medication spread: Yes Injectate: 0.5% Ropivacaine (see comment for volume) (15cc+10cc nacl pf + decadron 4mg each side) Blood Aspirated: No Pain Paresthesia on Injection Noted: No Resistance on Injection: Normal Image Stored and Saved: Yes Events: Uneventful and Well Tolerated
[2024-06-30] MEDS: LACTATED RINGERS 1,000 ML IV ONE ×2 (14:00→18:00)
[2024-06-30 15:19] VITALS: TEMP 97.1
--- NOTE | 2024-06-30 15:48 | P.OP ---
Date of Procedure: 06/30/24 Description of Procedure: SURGEON: SUZE HERBERT MD PREOPERATIVE DIAGNOSES: 1. Left lower quadrant abdominal pain due to adhesions 2. Diabetes type 2, insulin-dependent 3. History of colon cancer 4. History of right renal cancer 5. History of adrenal cancer 6. History of left lung cancer 7. History of multiple abdominal surgeries with adhesions 8. History of bilateral inguinal hernia repair 9. Hypertensive heart disease 10. Dementia 11. Chronic blood thinners 12. Hypothyroidism 13. Obstructive uropathy due to prostate disorder 14. Atrial fibrillation 15. Gastroesophageal reflux disease 16. Obstructive sleep apnea POSTOPERATIVE DIAGNOSES: 1. Left lower quadrant abdominal pain due to adhesions 2. Diabetes type 2, insulin-dependent 3. History of colon cancer 4. History of right renal cancer 5. History of adrenal cancer 6. History of left lung cancer 7. History of multiple abdominal surgeries with adhesions 8. History of bilateral inguinal hernia repair 9. Hypertensive heart disease 10. Dementia 11. Chronic blood thinners 12. Hypothyroidism 13. Obstructive uropathy due to prostate disorder 14. Atrial fibrillation 15. Gastroesophageal reflux disease 16. Obstructive sleep apnea 17. Recurrent left inguinal hernia 18. Severe intra-abdominal adhesions OPERATION: 1. Robotic-assisted da Sabina Xi laparoscopic extensive lysis of adhesions over 1 hr 2. Robotic-assisted da Sabina Xi laparoscopic left inguinal hernia repair without mesh COMPLICATIONS: None. Anesthesia: GETA, local Estimated Blood Loss (ml): 10 Pathology: none sent Condition: stable Disposition: same day OPERATIVE FINDINGS: 1. Severe peritoneal adhesions involving midline, bilateral upper abdomen and left groin 2. No recurrent right inguinal hernia. 3. Recurrent left inguinal hernia. INDICATIONS: The patient is a 78-year-old male with multiple medical comorbidities including metastatic renal cell cancer who presents with persistent and worsening left lower quadrant abdominal pain. He has pre- existing history of severe intra-abdominal adhesions including bilateral global hernia repairs. Cardiac risk assessment was obtained. Due to persistent pain patient elected for surgical invention. Surgical intervention of inguinal hernia repair with mesh and with lysis of adhesions was described given his history of severe adhesive band disease. Informed consent was obtained. Robotic assisted laparoscopic approach was described. Benefits and risks of the procedure including but not limited to bleeding, infection, injury to the small bowel was described. Informed consent was obtained. DESCRIPTION OF PROCEDURE: Patient was brought to the operating room, placed in supine position. After general induction, the abdomen had been prepped and draped in standard sterile fashion. The robotic da Sabina XI system was primed. After a timeout protocol was performed, the patient had been prepped and draped in standard sterile fashion. A 5 mm 0 degrees laparoscopic trocar entry was performed along the left upper quadrant. The abdomen was insufflated to 15 mmHg pressure which he tolerated well. Diagnostic laparoscopy demonstrated severe intra-abdominal adhesions involving the left groin, midline, bilateral upper abdomen. No injury to the bowel, viscera or mesentery was identified. Small bowel was adherent to the midline including the upper abdomen. Next, three 8 mm robotic ports were placed along the left abdomen. Please note that the ports were placed at least 8 cm away from the target anatomy. The robot was docked along the right lateral abdomen. Instruments were interchanged using only 3 ports for a grasper, vessel sealer, and scissors with cautery. Instruments were interchanged by the assistant cook including Bovie cautery scissors. I had sat at the console. Extensive lysis of adhesions over 1 hour was performed. Carefully the adhesions were taken down without injury to the small bowel using vessel sealer and cautery on scissors. No adhesions were identified along the prior right inguinal hernia repair. All adhesions were released of the midline including pelvis. After careful dissection, recurrent left inguinal hernia was identified and reduced. Hemostasis was excellent and abdomen was dry upon completion. To prepare for left inguinal hernia repair, the robot was undocked. Additional 2 trocars were placed along the mid abdomen using 8 mm robotic trocars. The robot was redocked. Patient was placed in Trendelenburg position, 7 degrees. Theodore needle team cdl driver was used to to close the defect. Robotic The mesh of the prior left inguinal hernia was found with a defect along the inferior pole. The peritoneum was mobilized and close to the mesh using 2-0 V- Loc, nonabsorbable. The defect was closed. Mesh repair was avoided as consent from the patient was not obtained including patient's pre-existing severe abd ominal adhesions. All pneumoperitoneum and instruments were evacuated from the abdominal cavity. The incisions were reapproximated using 4-0 Monocryl in an interrupted subcuticular fashion. Please note along the trocar sites, local anesthetic was placed as a field block prior to insertion of all instruments. The instruments were docked. Insufflation was removed from the abdomen. The skin was cleansed and dried using dilute hydroperoxide. Liquid glue was applied to the skin. At the end of the procedure needle, sponge, and instrument count had been verified correct by the rn medical surgical. The patient was transferred to postanesthesia care unit in stable condition. Intraoperative images including findings were described to the patient's family. Plan - Discharge Summary Discharge Rx Participant: No New Discharge Prescriptions: New Simethicone [Gas-X] 125 mg PO AC-TID PRN #20 capsule PRN Reason: Pain Acetaminophen Tab [Tylenol Tab] 1,000 mg PO Q6HR PRN #30 tablet PRN Reason: Pain Continue Levothyroxine Sodium [Synthroid] 137 mcg PO QAM Doxazosin Mesylate [Cardura] 8 mg PO HS Insulin Glargine (Lantus) [Lantus Vial] 5 unit SQ PC-BRKFST carvediloL [Coreg*] 25 mg PO BID-W/MEALS #60 tab Donepezil [Aricept] 10 mg PO HS Apixaban [Eliquis] 5 mg PO BID Tamsulosin HCl [Flomax] 0.4 mg PO BID Zantac(Unknown Dose) 10 mg PO QAM Cabozantinib S-Malate [Cabometyx] 20 mg PO Q48H Cholecalciferol (Vitamin D3) [Vitamin D3 (50 Mcg = 2000 Iu)] 50 mcg PO QAM Discontinued Empagliflozin [Jardiance] 10 mg PO QAM Discharge Medication List Levothyroxine Sodium [Synthroid] 137 mcg PO QAM 09/20/13 [History] Doxazosin Mesylate [Cardura] 8 mg PO HS 05/10/15 [History] Insulin Glargine (Lantus) [Lantus Vial] 5 unit SQ PC-BRKFST 05/02/18 [History] carvediloL [Coreg*] 25 mg PO BID-W/MEALS #60 tab 05/18/18 [Rx] Apixaban [Eliquis] 5 mg PO BID 06/27/24 [History] Cabozantinib S-Malate [Cabometyx] 20 mg PO Q48H 06/27/24 [History] Cholecalciferol (Vitamin D3) [Vitamin D3 (50 Mcg = 2000 Iu)] 50 mcg PO QAM 06/07 05/02 [History] Donepezil [Aricept] 10 mg PO HS 06/27/24 [History] Tamsulosin HCl [Flomax] 0.4 mg PO BID 06/27/24 [History] Zantac(Unknown Dose) 10 mg PO QAM 06/27/24 [History] Acetaminophen Tab [Tylenol Tab] 1,000 mg PO Q6HR PRN #30 tablet 06/30/24 [Rx] Simethicone [Gas-X] 125 mg PO AC-TID PRN #20 capsule 06/30/24 [Rx] Follow up Appointment(s)/Referral(s): Suze Herbert MD [STAFF PHYSICIAN] - 07/04/24 6:25 pm (Telehealth) Patient Instructions/Handouts: Lysis of Abdominal Adhesions (DC) Activity/Diet/Wound Care/Special Instructions: START BLOOD THINNER 07/03/24 TELEHEALTH - DR WILL CALL YOU BETWEEN 9 am to 8 pm NO LONG DRIVES OR AIRPLANE RIDES OVER 60 MINUTES FOR THE NEXT 2, 07/14/24 WEEKS DUE TO HIGH RISK OF PULMONARY EMBOLISM/DVTs May drive in 72 hrs, 07/03/24 No lifting over 10 pounds in 2 weeks until 07/14/24 May shower. No bath tub soaks for two weeks until 07/14/24 Diet as tolerated. Use Tylenol, simethicone scheduled for the next 24-48 hours for best pain relief. Use ice along incisions for today to prevent swelling. Discharge Disposition: HOME SELF-CARE
[2024-06-30] MEDS: METOPROLOL TARTRATE 5 MG/5 ML VIAL IVP STA (16:08)
[2024-06-30 16:43] LABS: Glucose,Whole Blood 121 mg/dL (70-110)
[2024-06-30] MEDS: HYDROcodone/APAP 5-325MG 1 EACH TAB PO STA (17:23)
[2024-06-30 18:18] VITALS: BP 130/83; PULSE 86
[2024-06-30] MEDS: TAMSULOSIN 0.4 MG CAP.ER.24H PO STA (18:25)
== END 2024-06-30 19:14 | disposition home or self-care (01) ==
LOC: OR 08:24
PROVIDERS: ATTEND Surgery Plastic and Reconstructive Surgery
DX: K40.91 Unilateral inguinal hernia, without obstruction or gangrene, recurrent (principal); K66.0 Peritoneal adhesions (postprocedural) (postinfection); G89.18 Other acute postprocedural pain; I48.11 Longstanding persistent atrial fibrillation; I11.9 Hypertensive heart disease without heart failure; E11.9 Type 2 diabetes mellitus without complications; E78.5 Hyperlipidemia, unspecified; G47.33 Obstructive sleep apnea (adult) (pediatric); E03.9 Hypothyroidism, unspecified; F03.90 Unspecified dementia, unspecified severity, without behavioral disturbance, psychotic disturbance, mood disturbance, and anxiety; N40.1 Benign prostatic hyperplasia with lower urinary tract symptoms; N13.8 Other obstructive and reflux uropathy; K21.9 Gastro-esophageal reflux disease without esophagitis; Z79.890 Hormone replacement therapy; Z79.4 Long term (current) use of insulin; Z79.01 Long term (current) use of anticoagulants; Z79.84 Long term (current) use of oral hypoglycemic drugs; Z79.899 Other long term (current) drug therapy; Z85.038 Personal history of other malignant neoplasm of large intestine; Z85.858 Personal history of malignant neoplasm of other endocrine glands; Z85.118 Personal history of other malignant neoplasm of bronchus and lung; Z85.528 Personal history of other malignant neoplasm of kidney; Z90.5 Acquired absence of kidney; Z88.0 Allergy status to penicillin
CPT/HCPCS: 49329; 49651; S2900; 64468; 80053; 85025

== ENCOUNTER → 2024-06-30 | Outpatient (CLI) | payer MEDICARE ==
--- NOTE | 2024-06-30 09:50 | XR ---
EXAMINATION TYPE: XR shoulder complete LT DATE OF EXAM: 06/30/2024 8:36 AM COMPARISON: None. CLINICAL INDICATION: Male, 78 years old with history of M25.512 pain left shoulder, Pain TECHNIQUE: XR shoulder complete LT view(s) obtained. FINDINGS: The humeral head articulates with the glenoid. The acromio-clavicular junction is normal. No acute fractures or dislocations are evident. A follow up study can be performed 7-10 days from acute trauma for continued pain. MRI can be perfor med if soft tissue evaluation would be of benefit. IMPRESSION: 1. No acute osseous shoulder abnormality. [facility], Workstation: [facility], 06/30/2024 9:48 AM
[2024-06-30 10:58] LABS: Basophils # (A) 0.03 X 10*3/uL (0.00-0.10); Basophils % (A) 0.9 %; Eosinophils # (A) 0.18 X 10*3/uL (0.04-0.35); Eosinophils % (A) 5.6 %; HCT 41.8 % (39.6-50.0); HGB 14.1 g/dL (13.0-17.0); Lymphocytes # (A) 0.67 X 10*3/uL (0.90-5.00); Lymphocytes % (A) 20.8 %; MCHC 33.7 g/dL (32.0-37.0); MCV 94.8 FL (80.0-97.0); Mean Platelet Volume 9.6 FL (9.5-12.2); Monocytes % (A) 12.4 %; NRBC Per 100 WBC 0 X 10*3/uL (0.00-0.01); Neutrophils # (A) 1.93 X 10*3/uL (1.80-7.70); Platelet Count 121 X 10*3/uL (140-440); RBC 4.41 X 10*6/uL (4.40-5.60); RDW 13.8 % (11.5-14.5); WBC 3.22 X 10*3/uL (4.50-10.00)
[2024-06-30 11:29] LABS: ALT 20 U/L (10-49); AST 23 U/L (14-35); Albumin 3.8 g/dL (3.8-4.9); Albumin/Globulin Ratio 2.11 Ratio (1.60-3.17); Alkaline Phosphatase 77 U/L (41-126); BUN/Creat Ratio 14.81 Ratio (12.00-20.00); Blood Urea Nitrogen 23.7 mg/dL (9.0-27.0); Calcium 8.7 mg/dL (8.7-10.3); Carbon Dioxide 22.7 mmol/L (21.6-31.8); Chloride 110 mmol/L (96-109); Chol/HDL Ratio 3.38 Ratio; Globulin 1.8 g/dL (1.6-3.3); Glucose 83 mg/dL (70-110); Potassium 4.3 mmol/L (3.5-5.5); Prostate Specific Antigen 3.59 ng/mL (0.000-6.500); Sodium 143 mmol/L (135-145); Total Bilirubin 1.1 mg/dL (0.3-1.2); Total Protein 5.6 g/dL (6.2-8.2); VLDL Calculation 16.04 mg/dL (5.00-40.00)
[2024-06-30 11:51] LABS: Microalbumin Creatinine Ratio <8 mg/g Cr (0-30)
== END | disposition home or self-care (01) ==
LOC: LABWHC1 08:00
PROVIDERS: ATTEND Internal Medicine
DX: Z13.220 Encounter for screening for lipoid disorders (principal); Z12.5 Encounter for screening for malignant neoplasm of prostate; I13.10 Hypertensive heart and chronic kidney disease without heart failure, with stage 1 through stage 4 chronic kidney disease, or unspecified chronic kidney disease; E11.22 Type 2 diabetes mellitus with diabetic chronic kidney disease; N18.9 Chronic kidney disease, unspecified; E55.9 Vitamin D deficiency, unspecified; M25.512 Pain in left shoulder
CPT/HCPCS: 36415; 80053; 80061; 82043; 82306; 82570; 83036; 84153; 84443; 85025

== ENCOUNTER 2024-07-04 15:37 | Emergency (ER) | payer MEDICARE ==
[2024-07-04 15:50] VITALS: RESP 18
--- NOTE | 2024-07-04 17:56 | ED ---
Recheck HPI - General Chief Complaint: Recheck/Abnormal Lab/Rx Stated Complaint: Abn CT Time Seen by Provider: 07/04/24 17:04 Source: patient Mode of arrival: ambulatory Limitations: no limitations - History of Present Illness Initial Comments: Patient is an 78-year-old male with multiple abdominal surgeries including right nephrectomy, right colectomy, bilateral gluteal hernia repair with mesh, adrenal masspatient follows with oncologist Dr. Zepeda who told him to come to the ER after CT this morning showed free intraperitoneal air. Per patient, he had robotic lysis of adhesions with Dr. Herbert on Wednesday. Patient denying any acute complaints at this time. - Related Data Home Medications Medication Instructions Recorded Confirmed Doxazosin Mesylate [Cardura] 8 mg PO HS 05/10/15 07/04/24 Insulin Glargine (Lantus) [Lantus 5 unit SQ DAILY 05/02/18 07/04/24 Vial] Apixaban [Eliquis] 5 mg PO BID 06/27/24 07/04/24 Cabozantinib S-Malate [Cabometyx] 20 mg PO Q48H 06/27/24 07/04/24 Cholecalciferol (Vitamin D3) 50 mcg PO DAILY 06/27/24 07/04/24 [Vitamin D3 (50 Mcg = 2000 Iu)] Donepezil [Aricept] 10 mg PO HS 06/27/24 07/04/24 Tamsulosin HCl [Flomax] 0.4 mg PO BID 06/27/24 07/04/24 Empagliflozin [Jardiance] 10 mg PO DAILY 07/04/24 07/04/24 Famotidine [Pepcid] 10 mg PO DAILY 07/04/24 07/04/24 Levothyroxine Sodium [Synthroid] 137 mcg PO DAILY 07/04/24 07/04/24 carvediloL [Coreg] 6.25 mg PO BID 07/04/24 07/04/24 Allergies Allergy/AdvReac Type Severity Reaction Status Date / Time Penicillins Allergy Rash/Hives Verified 07/04/24 17:34 Review of Systems ROS Statement: Those systems with pertinent positive or pertinent negative responses have been documented in the HPI. ROS Other: All systems not noted in ROS Statement are negative. Constitutional: Denies: fever, chills Respiratory: Denies: cough, dyspnea Cardiovascular: Denies: chest pain, palpitations Gastrointestinal: Denies: abdominal pain, nausea, vomiting Genitourinary: Denies: urgency, dysuria Skin: Denies: rash, lesions Past Medical History Past Medical History: Atrial Fibrillation, Cancer, Diabetes Mellitus, GERD/Reflux, Hypertension, Memory Impairment, Prostate Disorder, Sleep Apnea/CPAP/BIPAP, Thyroid Disorder Additional Past Medical History / Comment(s): Atrial fibrillation per EKG from 2019 (EMR) and EKG from [facility] from November 2023-pt denied hx of [id number] he didn't know why he was taking Eliquis. Right KIDNEY CA- no chemo no radiation. Enlarged Prostate. Hx. of Hiatal Hernia HX COLON POLYPS. Hx. of hypertension. No CPAP/BIPAP in use. Hx skin cancer. Occasional short term mempory issues. Started Cancer tx May 2023 -immunotherapy infusion 1 X a month- currently being tx. History of Any Multi-Drug Resistant Organisms: None Reported Past Surgical History: Bowel Resection, Cholecystectomy, Hernia Repair, Joint Replacement, Orthopedic Surgery, Tonsillectomy Additional Past Surgical History / Comment(s): RT NEPHRECTOMY. RT KNEE ARTHROSCOPY. HIATAL , RT ING Hernia Repair X2 , total rt knee. removal of skin cancer to back. Surgery for sleep apnea. Deviated septum repair. Surgery to remove portion of bottom of rt lung R/T cancer. Wedge resection to lt lungo R/T cancer. Part of colon removed. Past Anesthesia/Blood Transfusion Reactions: No Reported Reaction Additional Past Anesthesia/Blood Transfusion Reaction / Comment(s): "I woke up during sugery one time." Past Psychological History: No Psychological Hx Reported Smoking Status: Never smoker - Past Family History Brother(s) Family Medical History: Cancer Additional Family Medical History / Comment(s): "went once a month to clean his blood" Mother History Unknown: Yes Family Medical History: Cancer Additional Family Medical History / Comment(s): Leukemia Father Family Medical History: Diabetes Mellitus Sister(s) Family Medical History: No Reported History Daughter(s) Family Medical History: No Reported History Son(s) Family Medical History: No Reported History General Exam Limitations: no limitations General appearance: alert, in no apparent distress Respiratory exam: Present: normal lung sounds bilaterally. Absent: respiratory distress Cardiovascular Exam: Present: regular rate, normal rhythm GI/Abdominal exam: Present: soft, normal bowel sounds. Absent: distended, tenderness, guarding, rebound Back exam: Present: normal inspection, full ROM Neurological exam: Present: alert, oriented X3 Psychiatric exam: Present: normal affect, normal mood Skin exam: Present: warm, dry, intact Course Vital Signs 07/04/24 15:47 Temperature 97.9 F Pulse Rate 72 Respiratory 18 Rate Blood Pressure 157/104 O2 Sat by Pulse 100 Oximetry Medical Decision Making - Medical Decision Making Was pt. sent in by a medical professional or institution (, [facility]IAMA, AREA COORDINATOR, urgent care, hospital, or alf...) When possible be specific @ -No Did you speak to anyone other than the patient for history (EMS, parent, family, police, friend...)? What history was obtained from this source @ -No Did you review nursing and triage notes (agree or disagree)? Why? @ -I reviewed and agree with nursing and triage notes Were old charts reviewed (outside hosp., previous admission, EMS record, old EKG, old radiological studies, urgent care reports/EKG's, alf records)? Report findings @ -No old charts were reviewed Differential Diagnosis? @ -Acute abdomen, bowel perforation, postsurgical changes, this is not an elraglusib list EKG interpreted by me (3pts min.). @ -As above X-rays interpreted by me (1pt min.). @ -None done CT interpreted by me (1pt min.). @ -None done U/S interpreted by me (1pt. min.). @ -None done What testing was considered but not performed or refused? (CT, X-rays, U/S, labs)? Why? @ -None What meds were considered but not given or refused? Why? @ -None Did you discuss the management of the patient with other professionals (professionals i.e. , MARIAMA, AREA COORDINATOR, lab, RT, psych nurse, social services specialist, stemmer machine, teacher, chief media officer, leather case finisher)? Give summary @ -Case was discussed with ED attending physician Dr. Randall. Was smoking cessation discussed for >3mins.? @ -No Was critical care preformed (if so, how long)? @ -No Were there social determinants of health that impacted care today? How? (Homelessness, low income, unemployed, alcoholism, drug addiction, transportation, low edu. Level, literacy, decrease access to med. care, fdc, rehab)? @ -No Was there de-escalation of care discussed even if they declined (Discuss DNR or withdrawal of care, Hospice)? DNR status @ -No What co-morbidities impacted this encounter? (DM, HTN, Smoking, COPD, CAD, Cancer, CVA, ARF, Chemo, Hep., AIDS, mental health diagnosis, sleep apnea, morbid obesity)? @ -None Was patient admitted / discharged? Hospital course, mention meds given and route, prescriptions, significant lab abnormalities, going to OR and other pertinent info. @ -Case was discussed with surgeon Dr. Herbert who was not concerned about the CT. Patient will be discharged home with self-care. Patient to follow-up with surgeon and oncology as instructed. Undiagnosed new problem with uncertain prognosis? @ -No Drug Therapy requiring intensive monitoring for toxicity (Heparin, Nitro, Insulin, Cardizem)? @ -No Were any procedures done? @ -No Diagnosis/symptom? @ -Abnormal CT scan Acute, or Chronic, or Acute on Chronic? @ -Acute Uncomplicated (without systemic symptoms) or Complicated (systemic symptoms)? @ -Default Side effects of treatment? @ -No Exacerbation, Progression, or Severe Exacerbation? @ -No Poses a threat to life or bodily function? How? (Chest pain, USA, DC, pneumonia, PE, COPD, DKA, ARF, appy, cholecystitis, CVA, Diverticulitis, Homicidal, Suicidal, threat to staff... and all critical care pts) @ -No Disposition Clinical Impression: Abnormal CT of the abdomen Disposition: HOME SELF-CARE Additional Instructions: Every disease is a spectrum and a small chance still exists that a serious condition could develop, for this reason, please monitor yourself closely for new, changing or worsening symptoms, symptoms that persist beyond 48 hours, any further episodes of vomiting blood, difficulty in breathing, severe abdominal pain, symptoms that did not improve in the next 48 hours, black or bloody stools, fever, inability to tolerate/keep down fluids or your medications, inability to follow up with outpatient providers as instructed and should you experience these symptoms or should you have any further concerns for your wellbeing please return to the ED or call 911 immediately. PLEASE take prescriptions as listed in discharge instructions. PLEASE call your primary care physician as soon as possible to arrange / discuss plan for followup appointment. Appointment in the next 1-3 days is strongly encouraged if possible. PLEASE let us know here before you leave if there is anything further we can do to be of any assistance. Take care and feel Better! Is patient prescribed a controlled substance at d/c from ED?: No Referrals: Luana Wiley MD [Primary Care Provider] - 1-2 days
[2024-07-04 18:20] VITALS: BP 133/89; PULSE 75; TEMP 97.7
== END 2024-07-04 18:20 | disposition home or self-care (01) ==
LOC: EC 15:37
DX: R93.89 Abnormal findings on diagnostic imaging of other specified body structures (principal); Z88.0 Allergy status to penicillin
CPT/HCPCS: 99282

== ENCOUNTER → 2024-07-04 | Outpatient (CLI) | payer MEDICARE ==
--- NOTE | 2024-07-04 13:59 | CT ---
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 Technique: CT ChestAbdPelvis wo contrast; coronal and sagittal reconstructions performed. CT DLP: 599.4 mGycm, Automated exposure control for dose reduction was used. Findings: CHEST: There is generalized anasarca change. Heart normal size without pericardial effusion. Extensive three-vessel coronary artery calcifications are present. Borderline ectasia ascending aorta 3.7 cm. Conventional arch vessel branching anatomy. Scattered prominent but nonenlarged mediastinal lymph nodes measuring up to 7 mm are unchanged. Background mild emphysematous change. Redemonstrated small to moderate right pleural effusion with po stsurgical change of right lower lobectomy. ABDOMEN: Lack of IV contrast limits assessment of the solid abdominal viscera, lymph nodes, and vascular struc tures. Allowing for this limitation, similar calcification right liver lobe. Cholecystectomy clips. Possible previous Baldev fundoplication. A 3.0 cm nodule in the right adrenal gland is unchanged. Surgical clips in the right renal fossa. Left adrenal gland, suspect an underlying parapelvic cysts left kidney, spleen, and pancreas show no gross abnormality. For noncontrast exam. Generalized anasarca change redemonstrated increased in the interval. There is new scattered mild free intraperitoneal air. The exact site of the air is unclear. There is previous partial right hemicolectomy. No dilated small bowel or free fluid is seen. Mid sigm oid diverticulosis. No clear evidence for acute diverticulitis. Circumferential bladder wall thickening. Mild perivesicular fat stranding. Severe prostatomegaly up t o 7.6 cm. No abnormal fluid collection in the pelvis or pelvic lymphadenopathy. Bones: Degenerative change at the right greater than left SI joints. Accentuated midthoracic kyphosis. Advanced hypertrophic facet arthropathy lower lumbar spine. Superio r endplate deformity resulting in mild anterior wedging L1 remains unchanged. IMPRESSION: 1. New mild free intraperitoneal air. Correlate for signs/symptoms of acute abdomen. The exact source of the free air is unclear. The patient has had previous right hemicolectomy. There is some underlyi ng sigmoid diverticulosis but no clear evidence for acute diverticulitis. Suspect previous Baldev fun doplication as well. 2. Post surgical change right lower lobectomy and right nephrectomy. A small to moderate right pleura l effusion is unchanged. A 3.0 cm right adrenal nodule remains unchanged. 3. Severe prostatomegaly is 7.6 cm. Bladder wall thickening could reflect chronic bladder wall hypert rophy. Correlate to exclude cystitis. Critical findings relayed to Dr. Heavenly Zepeda and the oncology team via perfect serve at 1:56 PM. [facility], Workstation: [facility], 07/04/2024 1:57 PM
== END | disposition home or self-care (01) ==
LOC: RADCTMAIN 12:11
PROVIDERS: ATTEND Internal Medicine
DX: C64.9 Malignant neoplasm of unspecified kidney, except renal pelvis (principal); E11.9 Type 2 diabetes mellitus without complications; N18.9 Chronic kidney disease, unspecified; K57.30 Diverticulosis of large intestine without perforation or abscess without bleeding; Z90.5 Acquired absence of kidney; J90 Pleural effusion, not elsewhere classified; N40.0 Benign prostatic hyperplasia without lower urinary tract symptoms; Z71.3 Dietary counseling and surveillance; Z90.49 Acquired absence of other specified parts of digestive tract
CPT/HCPCS: 71250; 74176

== ENCOUNTER → 2024-07-04 | Outpatient (CLI) | payer MEDICARE ==
[2024-07-04 14:46] LABS: HCT 42.5 % (39.6-50.0); HGB 13.8 g/dL (13.0-17.0); MCH 31.6 pg (27.0-32.0); MCHC 32.5 g/dL (32.0-37.0); MCV 97.3 FL (80.0-97.0); Mean Platelet Volume 9.9 FL (9.5-12.2); NRBC Per 100 WBC 0 X 10*3/uL (0.00-0.01); Platelet Count 119 X 10*3/uL (140-440); RBC 4.37 X 10*6/uL (4.40-5.60); RDW 13.8 % (11.5-14.5)
[2024-07-04 14:47] LABS: Basophils # (A) 0.02 X 10*3/uL (0.00-0.10); Basophils % (A) 0.5 %; Eosinophils # (A) 0.34 X 10*3/uL (0.04-0.35); Eosinophils % (A) 8.1 %; Lymphocytes % (A) 14.3 %; Monocytes # (A) 0.42 X 10*3/uL (0.20-1.00); Neutrophils # (A) 2.81 X 10*3/uL (1.80-7.70); Neutrophils % (A) 66.9 %
[2024-07-04 15:42] LABS: Magnesium 1.7 mg/dL (1.5-2.4)
[2024-07-04 15:43] LABS: % Iron Saturation 34.71 (15.00-50.00); Iron 84 UG/DL (65-175); Phosphorus 2.4 mg/dL (2.4-5.1); Total Iron Binding Capacity 242 UG/DL (228-460); Uric Acid 6.4 mg/dL (3.7-8.7)
[2024-07-04 16:00] LABS: ALT 19 U/L (10-49); AST 26 U/L (14-35); Albumin 3.7 g/dL (3.8-4.9); Albumin/Globulin Ratio 2.18 Ratio (1.60-3.17); Alkaline Phosphatase 76 U/L (41-126); BUN/Creat Ratio 16.38 Ratio (12.00-20.00); Blood Urea Nitrogen 21.3 mg/dL (9.0-27.0); Calcium 8.5 mg/dL (8.7-10.3); Chloride 113 mmol/L (96-109); Globulin 1.7 g/dL (1.6-3.3); Glucose 141 mg/dL (70-110); Potassium 4.4 mmol/L (3.5-5.5); Sodium 148 mmol/L (135-145); Total Bilirubin 0.9 mg/dL (0.3-1.2); Total Protein 5.4 g/dL (6.2-8.2)
[2024-07-04 16:29] LABS: Appearance,Urine Clear (Clear); Bilirubin,Urine Negative (Negative); Blood,Urine Negative (Negative); Color,Urine Yellow (Yellow); Ketones,Urine Negative (Negative); Nitrite,Urine Negative (Negative); PH, Urine 5.5; Specific Gravity,Urine 1.026 (1.001-1.030); Urobilinogen,Urine 0.2 E.U./DL
[2024-07-04 21:22] LABS: Microalbumin Creatinine Ratio <16 mg/g Cr (0-30); Urine Creatinine 74.2 mg/dL (39.0-259.0)
== END | disposition home or self-care (01) ==
LOC: LABWHC1 10:02
PROVIDERS: ATTEND Nurse Practitioner Family
DX: E55.9 Vitamin D deficiency, unspecified (principal); N25.81 Secondary hyperparathyroidism of renal origin; M10.9 Gout, unspecified; D63.1 Anemia in chronic kidney disease; N18.31 Chronic kidney disease, stage 3a; R80.9 Proteinuria, unspecified
CPT/HCPCS: 36415; 80053; 81003; 82043; 82306; 82570; 82728; 83540; 83550; 83735; 83970; 84100; 84550; 85025